=== PATIENT | female | born 1955 | race Caucasian/White ===

== ENCOUNTER 2017-07-26 21:09 | Inpatient (IN) | payer OTHER ==
[~2017-07-26] VITALS: Ht 160 cm; Wt 81.4 kg
[~2017-07-26 21:09] MED LIST: ASPI325T45 PO; CLOP1TAB15 PO; CRS/10 PO; DOCU-94 PO; FERR1TAB13 PO; FOLITAB2 PO; FRS/40 PO; METO25TA3 PO; NVLGI7030 SC; OMEP20TA PO; SEVE800T7 PO; SODI650T8 PO; [UNRECOGNIZED DRUG - CODE]
[2017-07-26 23:22] VITALS: PULSE 98; O2SAT 100
[2017-07-26] MEDS ORDERED: MAGNESIUM HYDROXIDE SUSP 30 ML UDC PO PRN (23:45)
[2017-07-26] MEDS ORDERED: DEXTROSE 50% 50 ML SYR IV PRN (23:45)
[2017-07-26] MEDS ORDERED: GLUCAGON FOR INJ 1 MG VIAL SQ PRN (23:45)
[2017-07-26] MEDS ORDERED: GLUCOSE 10 TABS/TUBE PO PRN (23:45)
[2017-07-26] MEDS ORDERED: GLUCOSE 40% GEL 15 GM TUBE PO PRN (23:45)
[2017-07-26] MEDS ORDERED: NITROGLYCERIN 0.4 MG SL PER TAB CHARGE SL PRN (23:45)
[2017-07-27] VITALS (28 sets, daily range): BP systolic 105–186; BP diastolic 57–86; PULSE 65–98; TEMP 36.4–37.1; O2SAT 93–100; Ht 160 cm; Wt 81.4 kg
--- NOTE | 2017-07-27 00:18 | History and Physical ---
History & Physical Date & Time of Service: Jul 26, 2017 at 23:53 Chief Complaint: Respiratory Distress, Dialysis Patient Primary Care Physician: No Doctor, Assigned History of Present Illness Source: patient The patient is a 62 year old female with a past medical history of ESRD requiring dialysis, CHF, HTN, CAD, DM and COPD that presents as a direct admit from [facility] with worsening shortness of breath since this afternoon. The patient began having worsening shortness of breath that came on suddenly around 2 pm that she noticed when she walked to the bathroom and was significantly short of breath. At that point the patient contacted EMS and was placed on CPAP. At [facility] the patient was started on BIPA with setting of 10/5, 45% FIO2. The patient was treated with 40mg of IV Lasix due to concerns over volume overload in addition to Dextrose due to a BSG in the 60s. Due to the worsening respiratory status of the patient and short term need for dialysis the patient was transferred to [facility]. At this time the patient is resting comfortably in bed and states her shortness of breath has improved with her first dose of IV lasix and BiPAP. She denies any recent fevers, chills, or cough. The patient noted that she had a left sided sharp pain earlier that she though was due to indigestion that has now resolved. The patient was hospitalized 2 weeks ago for acute respiratory failure and subsequently had cardiac arrest (will need to obtain records from [place]). The patient appreciates having baseline orthopnea and PND. She takes her medications as instructed but states she has run out of her Plavix and has not been taking it. Social History Smoking Status: Former Smoker Drug Use: none Marital Status: single Housing status: lives with family Occupational Status: retired Immunizations History of Influenza Vaccine: No History of Tetanus Vaccine?: Yes History of Pneumococcal: Yes History of Hepatitis B Vaccine: Yes Multi-Drug Resistant Organisms History of MDRO: No Allergies Coded Allergies: Atorvastatin (Verified Allergy, Mild, UNKNOWN, 05/29/17) Calcium Channel Blockers (Verified Allergy, Mild, UNKNOWN, 05/29/17) Carbapenems (Verified Allergy, Mild, UNKNOWN, 05/29/17) Cephalosporins (Verified Allergy, Mild, UNKNOWN, 05/29/17) Penicillins (Verified Allergy, Mild, UNKNOWN, 05/29/17) Home Medications Scheduled Aspirin (Aspirin), 325 MG PO DAILY Clopidogrel (Plavix), 75 MG PO DAILY Darbepoetin Basilio-Polysorbate 8 (Aranesp Albumin Free), WK Docusate Sodium (Colace), 1 CAP PO DAILY Ferrous Sulfate (Kp Ferrous Sulfate), 1 TAB PO BID Folic Acid-Vitamin B6-Vitamin (Folic Acid/Vitamin B-6/Vi), PO DAILY Furosemide (Lasix), 40 MG PO BID Insulin Aspart 70/30 (Novolog Mix 70/30), 86 SC HS Insulin Aspart 70/30 (Novolog Mix 70/30), 94 SC QAM Metoprolol Succinate (Toprol Xl), 1 TAB PO DAILY Omeprazole (Omeprazole), 1 TAB PO DAILY Rosuvastatin Calcium (Crestor), 1 TAB PO DAILY Sevelamer Carbonate (Renvela), 1 TAB PO DAILY Sevelamer Carbonate (Renvela), 3 TAB PO TID AC Sodium Bicarbonate (Sodium Bicarbonate), 650 MG PO BID Review of Systems Constitutional: + fatigue, No fever, No chills Respiratory: + shortness of breath, + dyspnea on exertion, No cough, No sputum , No wheezing Cardiovascular: + orthopnea, + PND, + edema, No chest pain Abdomen: No pain, No nausea, No vomiting, No diarrhea, No constipation Genitourinary - Female: No dysuria Physical Exam Vital Signs Date Time Temp Pulse Resp B/P (MAP) Pulse Ox O2 Delivery O2 Flow Rate FiO2 07/26/17 23:22 98 100 General Appearance: no apparent distress, + obese Head: normocephalic, atraumatic Eyes: normal inspection, sclerae normal Neck: supple, trachea midline, + JVD Respiratory/Chest: chest non-tender, + crackles (at the bases bilaterally), + pertinent finding (decreased breath sound) Cardiovascular: regular rate, rhythm, no edema, no gallop, no murmur Abdomen/GI: normal bowel sounds, non tender, soft Extremities/Musculoskelatal: no calf tenderness, + pedal edema, + swelling, + pertinent finding (2+ pitting above the knees bilaterally) Neurologic/Psych: alert, oriented x 3 Impression Assessment and Plan Patient is a 62 year old female with a pmh of ESRD with Dialysis, CHF, DM, HTN, HLD, and CAD that presents with a 1 day history of shortness of breath 1) Acute Hypoxic Respiratory Failure 2/2 CHF and Fluid overload - On arrival was on BiPAP started at [facility] --> Patient was put on 6L of oxygen with O2 sat in the low 90s and tolerating well - Supplemental oxygen with goal of maintaining O2 sats > 90% - Awaiting CXR and CTA reading from [facility] (CDs sent with patient) --> D- Dimer 3.93 but CTA chest negative - Albumin 2.5 - Nephrology Consult --> Most likely will have dialysis tomorrow --> Has fistula in left arm (peritoneal dialysis stopped this last week) - Received Lasix 40mg IV at [facility] (home dose 40mg Lasix PO BID) --> Currently urinating and states she has increase urine output since arriving 2) Hyperkalemia - K+ of 5.4 --> Concern at [facility] due to recent cardiac arrest believed to be secondary to hyperkalemia --> Dextrose given at [facility] - Repeat BMP - Plan for Dialysis tomorrow 3) Hypoglycemia (Diabetes Mellitus) - Current glucose of 76 - Currently holding home Novolog mix - Sliding scale insulin ordered but currently on hold 4) CHF - ECHO from 05/30: * Ejection Fraction = 40-45% * Diastolic dysfunction, Grade III (restrictive pattern), consistent with markedly increased left atrial pressure. - Continuing home Lasix at this time - Monitor improvement after Dialysis tomorrow 5) ESRD - Creatinine significantly elevated (8.1) - Previously on Peritoneal dialysis (currently not functioning) --> Now obtaining dialysis through left AV fistula - Nephrology consulted, appreciate mgmt. Will be dialyzed here - BMP, Phospate, Magnesium ordered 5) CAD - Troponin Negative at [facility] - Continue ASA, Plavix, metoprolol, rosuvastatin 6) Anemia --> Chronic disease - H/H 9.8/32.3 on CBC at [facility] - Baseline Hgb approximately 7 7) DVT Prophylaxis - Heparin 5,000 units q8h 8) Code Status - Full Resuscitation - States that she will be full code until "her daughter decides otherwise" - No power of county attorney or living will at this time - Unable to speak with daughter because number provided by patient was to a disconnected number Resident Physician Supervision Note: I was present with Dr. Sadler during the history and exam. I discussed the case with the resident and agree with the findings and plan as documented in the note. Any exceptions or clarifications are listed here: 62 y/o F Hx systolic CHF, COPD, ESRD, DM - initially presented to [facility] due to respiratory distress. Treated with Lasix for vol overload and transferred for eventual dialysis. She has been on BIPAP since arrival and is comfortable at time of admission. Pt recently transitioned from peritoneal dialysis to hemodialysis. OE AAO x 3 S1,2 R Mild crackle at bases - good air movement and no wheezing NT, ND Min edema P: Pt will be referred to nephrology for dialysis - overload is likely multifactorial due to CHF and ESRD She was treated for minimal hyperK at [facility] as she reports a history of hyperkalemic arrest 2 weeks prior at [place] - her K was only 5.4 however and she received IV Lasix - we will therefore recheck her K The pt is hypoglycemic on arrival so that long-acting Insulin will be held - this may be owing to treatment with Insulin for hyperK Above discussed with pt and resident Documented By: Trey Linares Level of Care Telemetry Advanced Directives Existing Advance Directive: No Existing Living Will: No Existing Power of Document Management Technician: No Existing Health Care Proxy: No Resuscitation Status FULL RESUSCITATION VTE Prophylaxis VTE Risk Assessment Done? Y/N: Yes Risk Level: Moderate Given or contraindicated: Unfractionated heparin SQ, T.E.DKeila Diana, SCD's Resident Tracking Resident Involvement: Resident Care Provided Care Provided: Adult Hospital Medicine
[2017-07-27 01:14] LABS: CALCIUM 9.5 mg/dl (8.5-10.1); CREATININE 8.35 mg/dl (0.60-1.20); PHOSPHORUS 7.7 mg/dl (2.5-4.9); POTASSIUM 5.8 mmol/L (3.5-5.1)
[2017-07-27] MEDS: SEVELAMER HYDROCH 800 MG TAB PO SCH ×4 (05:50→20:41)
[2017-07-27] MEDS: HEPARIN SOD 5000 UNIT/0.5 ML CARP SQ SCH ×3 (05:50→20:43)
[2017-07-27 06:23] LABS: HEMOGLOBIN A1C 6.3 % (4.5-5.6)
[2017-07-27 07:25] LABS: BASO % 0.6 %; BASO ABS # 0.06 K/uL (0-0.2); EOS % 2.3 %; EOS ABS # 0.23 K/uL (0-0.5); HEMATOCRIT 31.3 % (37-47); HEMOGLOBIN 9.5 g/dL (12.0-16.0); IG# 0.01 K/uL (0.00-0.02); LYMPH % 16.3 %; LYMPH ABS # 1.64 K/uL (1.2-3.4); MEAN CELL VOLUME 89.9 fL (80-100); MEAN CORPUSCULAR HEMOGLOBIN 27.3 pg (25-34); MEAN PLATELET VOLUME 9.2 fL (7.4-10.4); MONO % 9.4 %; MONO ABS # 0.95 K/uL (0.11-0.59); NEUT % 71.3 %; NEUT ABS # 7.18 K/uL (1.4-6.5); PLATELET COUNT 291 K/uL (130-400); RED CELL DISTRIBUTION WIDTH CV 17.3 % (11.5-14.5); RED CELL DISTRIBUTION WIDTH SD 57.4 fL (36.4-46.3); WHITE BLOOD COUNT 10.07 K/uL (4.8-10.8)
[2017-07-27 07:29] LABS: MEAN CORPUSCULAR HGB CONC 30.4 g/dl (32-36)
[2017-07-27 07:36] LABS: PTT PATIENT 24.5 SECONDS (21.0-31.0)
[2017-07-27] MEDS: CLOPIDOGREL BISULFATE 75 MG TAB PO SCH (07:48)
[2017-07-27] MEDS: METOPROLOL SUCC 25MG EXT REL TAB PO SCH (07:48)
[2017-07-27] MEDS: ROSUVASTATIN CALCIUM 10 MG TAB PO SCH (07:48)
[2017-07-27] MEDS: FERROUS SULFATE 325 MG TAB PO SCH ×2 (07:48→20:40)
[2017-07-27] MEDS: DOCUSATE SODIUM 100 MG CAP PO SCH (07:48)
[2017-07-27] MEDS: PANTOprazole SOD 40 MG TAB PO SCH (07:48)
[2017-07-27] MEDS: ASPIRIN 325 MG ECTAB PO SCH (07:48)
[2017-07-27] MEDS: FUROSEMIDE 40 MG TAB PO SCH ×2 (07:48→20:41)
[2017-07-27] MEDS: INSULIN ASPART 100 UNITS/ML 3 ML PEN SC SCH ×4 (07:51→20:07)
[2017-07-27 07:56] LABS: ALBUMIN 2.3 gm/dl (3.4-5.0); CALCIUM 9.4 mg/dl (8.5-10.1); CREATININE 8.48 mg/dl (0.60-1.20); TOTAL PROTEIN 8.6 gm/dl (6.4-8.2)
[2017-07-27] MEDS ORDERED: HEPARIN SOD (PORCINE) 1000 UNIT/ML 10 ML VIAL IV SCH (09:00)
[2017-07-27] MEDS ORDERED: SODIUM BICARBONATE 650 MG TAB PO SCH (09:00)
--- NOTE | 2017-07-27 09:01 | DIAGNOSTIC IMAGING REPORT ---
CHEST ONE VIEW PORTABLE CLINICAL HISTORY: Shortness of breath. COMPARISON STUDY: Chest CT July 26, 2017. FINDINGS: A calcific density along the superolateral aspect of the right humeral head suggests calcific tendinitis of the right rotator cuff. There is no pneumothorax. Moderate right and small left pleural effusions are noted with interstitial thickening and bilateral opacities. Moderate cardiomegaly is noted. There is no pneumothorax. IMPRESSION: 1. Interstitial thickening and bilateral opacities suggestive of pulmonary edema. 2. Moderate right and small left pleural effusions. 3. Moderate cardiomegaly. Electronically signed by: Edgardo Argueta M.D. 07/27/2017 8:59 AM Dictated Date/Time: 07/27/2017 8:57 AM
--- NOTE | 2017-07-27 09:33 | Family Medicine Progress Note ---
Progress Note Date of Service Jul 27, 2017. Subjective Pt evaluation today including: conversation w/ patient, physical exam, chart review, lab review, review of studies, review of inpatient medication list Pain: denies PO Intake: adequate SOB improved but not resolved. NO Chest pain leg swelling. + productive cough. no fever, chills, abdominal pain diarrhea Constitutional: No fever, No chills, No weakness Respiratory: + cough (productive), + shortness of breath (improved) Cardiovascular: No chest pain, No palpitations Abdomen: No pain, No nausea, No vomiting, No diarrhea Musculoskeletal: No swelling, No calf pain Skin: No rash, No itch Medications Current Inpatient Medications Medications (Trade) Dose Ordered Sig/Kaley Route Start Time Stop Time Status Last Admin Dose Admin Acetaminophen (Tylenol Tab) 650 mg Q4H PRN PO 07/26/17 23:45 08/25/17 23:44 Magnesium Hydroxide (Milk Of Magnesia Susp) 30 ml Q12H PRN PO 07/26/17 23:45 08/25/17 23:44 Ondansetron HCl (Zofran Inj) 4 mg Q6H PRN IV 07/26/17 23:45 08/25/17 23:44 Nitroglycerin (Nitrostat Tab) 0.4 mg UD PRN SL 07/26/17 23:45 08/25/17 23:44 Glucose (Glucose 40% Gel) 15-30 GRAMS 15 GRAMS... UD PRN PO 07/26/17 23:45 08/25/17 23:44 Glucose (Glucose Chew Tab) 4-8 Tablets 4 Tabl... UD PRN PO 07/26/17 23:45 08/25/17 23:44 Dextrose (Dextrose 50% 50ML Syringe) 25-50ML OF 50% DW IV FOR... UD PRN IV 07/26/17 23:45 08/25/17 23:44 Glucagon (Glucagon Inj) 1 mg UD PRN SQ 07/26/17 23:45 08/25/17 23:44 Aspirin (Ecotrin Tab) 325 mg DAILY PO 07/27/17 09:00 08/26/17 08:59 07/27/17 07:48 325 MG Clopidogrel Bisulfate (plAVix TAB) 75 mg DAILY PO 07/27/17 09:00 08/26/17 08:59 07/27/17 07:48 75 MG Docusate Sodium (coLACE CAP) 100 mg DAILY PO 07/27/17 09:00 08/26/17 08:59 Furosemide (Lasix Tab) 40 mg BID PO 07/27/17 09:00 08/26/17 08:59 07/27/17 07:48 40 MG Metoprolol Succinate (Toprol Xl Tab) 25 mg DAILY PO 07/27/17 09:00 08/26/17 08:59 07/27/17 07:48 25 MG Rosuvastatin Calcium (Crestor Tab) 10 mg DAILY PO 07/27/17 09:00 08/26/17 08:59 07/27/17 07:48 10 MG Sodium Bicarbonate (Sodium Bicarbonate Tab) 650 mg BID PO 07/27/17 09:00 08/26/17 08:59 07/27/17 07:48 650 MG Ferrous Sulfate (Feosol Tab) 325 mg BID PO 07/27/17 09:00 08/26/17 08:59 07/27/17 07:48 325 MG Sevelamer HCl (Renagel Tab) 800 mg HS PO 07/27/17 21:00 08/26/17 20:59 Sevelamer HCl (Renagel Tab) 2,400 mg AC PO 07/27/17 07:00 08/26/17 06:59 07/27/17 05:50 2,400 MG Pantoprazole Sodium (Protonix Tab) 40 mg QAM PO 07/27/17 09:00 08/26/17 08:59 07/27/17 07:48 40 MG Insulin Aspart (novoLOG ASPART) SLIDING SCALE G... ACHS SC 07/27/17 07:00 08/26/17 06:59 07/27/17 07:51 2 UNITS Heparin Sodium (Porcine) (Heparin Sq 5000 Unit/0.5ml) 5,000 unit Q8 SQ 07/27/17 06:00 08/26/17 05:59 07/27/17 05:50 5,000 UNIT Heparin Sodium (Porcine) (Heparin Iv Bolus) 2,000 unit 0900 IV 07/27/17 09:00 07/27/17 18:00 Objective Vital Signs Date Time Temp Pulse Resp B/P (MAP) Pulse Ox O2 Delivery O2 Flow Rate FiO2 1/2/18 07:00 36.6 86 20 166/86 (112) 100 Nasal Cannula 4.0 07/27/17 04:02 BiPAP 40 07/27/17 03:49 36.5 90 20 160/82 (108) 100 Nasal Cannula 6.0 07/27/17 01:15 168/80 (109) 07/27/17 00:16 20 93 Nasal Cannula 6.0 07/27/17 00:00 BiPAP 40 07/27/17 00:00 37.1 98 24 186/79 100 BiPAP 40 07/26/17 23:22 98 100 Physical Exam Notes: GENERAL: alert, well appearing, well nourished, no distress, non-toxic EYE EXAM: normal conjunctiva, PERRL and EOM's grossly intact NECK: supple, no nuchal rigidity, no adenopathy, non-tender LUNGS: Bilateral crackles. Normal chest wall mechanics HEART: no murmurs, S1 normal and S2 normal ABDOMEN: abdomen soft, non-tender, normo-active bowel sounds, no masses, no rebound or guarding. LOWER EXTREMITIES: No pitting edema. NEURO EXAM: Normal sensorium, cranial nerves II-XII grossly intact, normal speech Laboratory Results Results Past 24 Hours Test 07/26/17 23:47 07/27/17 00:28 07/27/17 01:16 07/27/17 04:18 Range/Units Bedside Glucose 76 96 78 70-90 mg/dl Sodium Level 136 136-145 mmol/L Potassium Level 5.8 3.5-5.1 mmol/L Chloride Level 103 98-107 mmol/L Carbon Dioxide Level 24 21-32 mmol/L Anion Gap 9.0 3-11 mmol/L Blood Urea Nitrogen 67 7-18 mg/dl Creatinine 8.35 0.60-1.20 mg/dl Est Creatinine Clear Calc Drug Dose 7.4 ml/min Estimated GFR () 5.4 Estimated GFR (Non- 4.6 BUN/Creatinine Ratio 8.0 10-20 Random Glucose 113 70-99 mg/dl Calcium Level 9.5 8.5-10.1 mg/dl Phosphorus Level 7.7 2.5-4.9 mg/dl Magnesium Level 2.7 1.8-2.4 mg/dl Test 07/27/17 05:22 07/27/17 06:58 07/27/17 07:07 Range/Units Estimated Average Glucose 134 mg/dl Hemoglobin A1c 6.3 4.5-5.6 % Bedside Glucose 96 70-90 mg/dl White Blood Count 10.07 4.8-10.8 K/uL Red Blood Count 3.48 4.2-5.4 M/uL Hemoglobin 9.5 12.0-16.0 g/dL Hematocrit 31.3 37-47 % Mean Corpuscular Volume 89.9 80-100 fL Mean Corpuscular Hemoglobin 27.3 25-34 pg Mean Corpuscular Hemoglobin Concent 30.4 32-36 g/dl Platelet Count 291 130-400 K/uL Mean Platelet Volume 9.2 7.4-10.4 fL Neutrophils (%) (Auto) 71.3 % Lymphocytes (%) (Auto) 16.3 % Monocytes (%) (Auto) 9.4 % Eosinophils (%) (Auto) 2.3 % Basophils (%) (Auto) 0.6 % Neutrophils # (Auto) 7.18 1.4-6.5 K/uL Lymphocytes # (Auto) 1.64 1.2-3.4 K/uL Monocytes # (Auto) 0.95 0.11-0.59 K/uL Eosinophils # (Auto) 0.23 0-0.5 K/uL Basophils # (Auto) 0.06 0-0.2 K/uL RDW Standard Deviation 57.4 36.4-46.3 fL RDW Coefficient of Variation 17.3 11.5-14.5 % Immature Granulocyte % (Auto) 0.1 % Immature Granulocyte # (Auto) 0.01 0.00-0.02 K/uL Prothrombin Time 10.3 9.0-12.0 SECONDS Prothromb Time International Ratio 1.0 0.9-1.1 Activated Partial Thromboplast Time 24.5 21.0-31.0 SECONDS Partial Thromboplastin Ratio 0.9 Sodium Level 134 136-145 mmol/L Potassium Level 6.0 3.5-5.1 mmol/L Chloride Level 102 98-107 mmol/L Carbon Dioxide Level 23 21-32 mmol/L Anion Gap 9.0 3-11 mmol/L Blood Urea Nitrogen 66 7-18 mg/dl Creatinine 8.48 0.60-1.20 mg/dl Est Creatinine Clear Calc Drug Dose 7.3 ml/min Estimated GFR () 5.3 Estimated GFR (Non- 4.6 BUN/Creatinine Ratio 7.8 10-20 Random Glucose 84 70-99 mg/dl Calcium Level 9.4 8.5-10.1 mg/dl Total Bilirubin 0.3 0.2-1 mg/dl Aspartate Amino Transf (AST/SGOT) 7 15-37 U/L Alanine Aminotransferase (ALT/SGPT) 15 12-78 U/L Alkaline Phosphatase 62 45-117 U/L Total Protein 8.6 6.4-8.2 gm/dl Albumin 2.3 3.4-5.0 gm/dl Globulin 6.3 2.5-4.0 gm/dl Albumin/Globulin Ratio 0.4 0.9-2 Assessment and Plan 62 yo F with h/o End stage Renal disease on Dialysis, CHF, DM, HTN, HLD, CAD, recent cardiac arrest presenting with with progressive dyspnea.found to have acute Hypoxic respiratory failure 1) Acute Hypoxic Respiratory Failure - 2/2 CHF and Fluid overload - Continue Furosemide 40 mg BID - Nephrology Consulted, dialysis today 2) Hyperkalemia - K 5.8 -> 6 - Plan for dialysis today 3) Hypoglycemia (T2DM) - resolved - Sliding scale insulin 4) CHF - ECHO from 05/30: Ejection Fraction = 40-45% Diastolic dysfunction, Grade III (restrictive pattern), consistent with markedly increased left atrial pressure. - Continue Lasix 5) ESRD - Cr >8 - Plan for Dialysis today via left AV fistula - Nephrology on board 5) CAD - elevated troponin - may be chronic in the setting of ESRD vs. acute ischemia , Continue to monitor trend - Cardiology consulted, Echo ordered - Continue ASA, Plavix, metoprolol, rosuvastatin 6) Anemia - likely secondary to renal insufficiency - H/H 9.5/31.3 - may need erythropoietin - F/u with Nephrology - follow daily CBC 7) DVT Prophylaxis - Heparin 5,000 units q8h 8) Code Status - Full Resuscitation Continued [facility] stay due to: multiple IV medications needed Discharge planning: uncertain Resident Tracking Resident Involvement: Resident Care Provided Care Provided: Adult Hospital Medicine History Resident Physician Supervision Note: I was present with Dr. Izaguirre during the history and exam. I discussed the case with the resident and agree with the findings and plan as documented in the note. Any exceptions or clarifications are listed here. Pt seen and evaluated following dialysis. At present, she reports that she has essentially returned to her baseline at rest. She is feeling significantly less fatigued, short of breath. However, she shares that this was fairly sudden onset and that she has a recent history of cardiac arrest (?) at [place] and was recommended cardiovascular intervention, which she deferred at that time. General Appearance: no apparent distress, obese Cardiovascular: normal peripheral pulses, regular rate, rhythm, no murmur, other (b/l 1+ pitting edema to the knee) Gastrointestinal: normal bowel sounds, non tender, soft, no organomegaly Neurologic/Psychiatric: alert, normal mood/affect, oriented x 3 Skin Characteristics: normal color, warm/dry Assessment/Plan 62 y/o female h/o ESRD on HD, CHF, DMII, HTN, HLD, CAD w/ recent arrest reported p/w acute onset SOB AHRF 2/2 volume overload in the setting of ESRD on HD and CHF/CAD w/ recent arrest - obtain outside records re: arrest and inpt stay. Will likely c/s cardiology following - continue supplemental O2, wean as needed - Nephrology aware, dialysis scheduled (1x completed) - continue lasix Hyperkalemia - trend BMP Hypoglycemia following insulin administration at [facility] for hyperglycemia - monitor FSBS, ISS/glargine when resolved CHF w/ CAD, HLD - grade III diastolic dysfunction (may 2017) - continue lasix, records above, continue metoprolol, ASA, Plavix, Crestor ACD - repeat CBC in AM DVT PPX - heparin FULL CODE
--- NOTE | 2017-07-27 10:12 | Nephrology Consultation ---
Nephrology Consultation Date & Providers Date of Consultation: Jul 27, 2017. Primary Care Provider: No Doctor, Assigned Referring Provider: Reason for Consultation ESRD History of Present Illness Brooke Fitch is a 62-year-old female with ESRD attributed to diabetic nephropathy. She has been on dialysis for ~2 years. Brooke is maintained on hemodialysis dialysis. She switched to in-center HD from PD approximately 1 week ago. Brooke's primary patient advocate is Dr. Coto in [place] at [facility]. She was on PD for approximately 2 years. PD complicated by difficulty with UF. She was admitted to [facility] in February with CHF. She was admitted to [facility] in May with volume overload. Volume status improved with HD. She has a LUE AVF. She presented to the ED at [facility] yesterday with shortness of breath and was transferred to [facility] for inpatient need for dialysis. Symptoms improved with IV loop diuretics and BIPAP. Brooke has chronic persistent anemia. She is on Aranesp. She denies any melena or hematochezia. She notes that she received blood transfusion support in January. TTE was completed in May noting LVEF of 40-45%. LA was severely dilated. There wass notable mitral calcification with mild MR/MS. CXR documenting pulmonary edema as well as vascular congestion, chronic changes , R>L pleural effusions and cardiomegaly. I spoke with nursing staff at [facility] this morning. Records from her dialysis unit were reviewed. Past Medical/Surgical History Medical: ESRD on HD Anemia Coronary artery disease with history of MO and PCI COPD Diabetes mellitus Hypertension Surgical: AVF, PD catheter placement Allergies Coded Allergies: Atorvastatin (Verified Allergy, Mild, UNKNOWN, 05/29/17) Calcium Channel Blockers (Verified Allergy, Mild, UNKNOWN, 05/29/17) Carbapenems (Verified Allergy, Mild, UNKNOWN, 05/29/17) Cephalosporins (Verified Allergy, Mild, UNKNOWN, 05/29/17) Penicillins (Verified Allergy, Mild, UNKNOWN, 05/29/17) Inpatient Medications Current Inpatient Medications Medications (Trade) Dose Ordered Sig/Kaley Route Start Time Stop Time Status Last Admin Dose Admin Acetaminophen (Tylenol Tab) 650 mg Q4H PRN PO 07/26/17 23:45 08/25/17 23:44 Magnesium Hydroxide (Milk Of Magnesia Susp) 30 ml Q12H PRN PO 07/26/17 23:45 08/25/17 23:44 Ondansetron HCl (Zofran Inj) 4 mg Q6H PRN IV 07/26/17 23:45 08/25/17 23:44 Nitroglycerin (Nitrostat Tab) 0.4 mg UD PRN SL 07/26/17 23:45 08/25/17 23:44 Glucose (Glucose 40% Gel) 15-30 GRAMS 15 GRAMS... UD PRN PO 07/26/17 23:45 08/25/17 23:44 Glucose (Glucose Chew Tab) 4-8 Tablets 4 Tabl... UD PRN PO 07/26/17 23:45 08/25/17 23:44 Dextrose (Dextrose 50% 50ML Syringe) 25-50ML OF 50% DW IV FOR... UD PRN IV 07/26/17 23:45 08/25/17 23:44 Glucagon (Glucagon Inj) 1 mg UD PRN SQ 07/26/17 23:45 08/25/17 23:44 Aspirin (Ecotrin Tab) 325 mg DAILY PO 07/27/17 09:00 08/26/17 08:59 07/27/17 07:48 325 MG Clopidogrel Bisulfate (plAVix TAB) 75 mg DAILY PO 07/27/17 09:00 08/26/17 08:59 07/27/17 07:48 75 MG Docusate Sodium (coLACE CAP) 100 mg DAILY PO 07/27/17 09:00 08/26/17 08:59 Furosemide (Lasix Tab) 40 mg BID PO 07/27/17 09:00 08/26/17 08:59 07/27/17 07:48 40 MG Metoprolol Succinate (Toprol Xl Tab) 25 mg DAILY PO 07/27/17 09:00 08/26/17 08:59 07/27/17 07:48 25 MG Rosuvastatin Calcium (Crestor Tab) 10 mg DAILY PO 07/27/17 09:00 08/26/17 08:59 07/27/17 07:48 10 MG Sodium Bicarbonate (Sodium Bicarbonate Tab) 650 mg BID PO 07/27/17 09:00 08/26/17 08:59 07/27/17 07:48 650 MG Ferrous Sulfate (Feosol Tab) 325 mg BID PO 07/27/17 09:00 08/26/17 08:59 07/27/17 07:48 325 MG Sevelamer HCl (Renagel Tab) 800 mg HS PO 07/27/17 21:00 08/26/17 20:59 Sevelamer HCl (Renagel Tab) 2,400 mg AC PO 07/27/17 07:00 08/26/17 06:59 07/27/17 05:50 2,400 MG Pantoprazole Sodium (Protonix Tab) 40 mg QAM PO 07/27/17 09:00 08/26/17 08:59 07/27/17 07:48 40 MG Insulin Aspart (novoLOG ASPART) SLIDING SCALE G... ACHS SC 07/27/17 07:00 08/26/17 06:59 07/27/17 07:51 2 UNITS Heparin Sodium (Porcine) (Heparin Sq 5000 Unit/0.5ml) 5,000 unit Q8 SQ 07/27/17 06:00 08/26/17 05:59 07/27/17 05:50 5,000 UNIT Heparin Sodium (Porcine) (Heparin Iv Bolus) 2,000 unit 0900 IV 07/27/17 09:00 07/27/17 18:00 Social History Smoking Status: Former Smoker Drug Use: none Marital Status: single Housing Status: lives with family Occupation: retired Review of Systems A complete review of systems was performed. Pertinent positives are noted above. All other systems are negative. Physical Exam Date Time Temp Pulse Resp B/P (MAP) Pulse Ox O2 Delivery O2 Flow Rate FiO2 07/27/17 07:00 36.6 86 20 166/86 (112) 100 Nasal Cannula 4.0 07/27/17 04:02 BiPAP 40 07/27/17 03:49 36.5 90 20 160/82 (108) 100 Nasal Cannula 6.0 07/27/17 01:15 168/80 (109) 07/27/17 00:16 20 93 Nasal Cannula 6.0 07/27/17 00:00 BiPAP 40 07/27/17 00:00 37.1 98 24 186/79 100 BiPAP 40 07/26/17 23:22 98 100 General Appearance: WD/WN, no apparent distress Head: normocephalic, atraumatic Eyes: normal inspection, sclerae normal ENT: normal ENT inspection, pharynx normal Neck: supple, + JVD Respiratory/Chest: no respiratory distress, no accessory muscle use, + decreased breath sounds, + rales Cardiovascular: regular rate, rhythm, no gallop Abdomen/GI: non tender, soft Back: no CVA tenderness Extremities/Musculoskelatal: normal inspection, + pedal edema, + pertinent finding (AVF with thrill and bruit) Neurologic/Psych: alert, oriented x 3 Laboratory Results Last 24 Hours Test 07/26/17 23:47 07/27/17 00:28 07/27/17 01:16 07/27/17 04:18 Bedside Glucose 76 mg/dl 96 mg/dl 78 mg/dl Sodium Level 136 mmol/L Potassium Level 5.8 mmol/L Chloride Level 103 mmol/L Carbon Dioxide Level 24 mmol/L Anion Gap 9.0 mmol/L Blood Urea Nitrogen 67 mg/dl Creatinine 8.35 mg/dl Est Creatinine Clear Calc Drug Dose 7.4 ml/min Estimated GFR () 5.4 Estimated GFR (Non- 4.6 BUN/Creatinine Ratio 8.0 Random Glucose 113 mg/dl Calcium Level 9.5 mg/dl Phosphorus Level 7.7 mg/dl Magnesium Level 2.7 mg/dl Test 07/27/17 05:22 07/27/17 06:58 07/27/17 07:07 07/27/17 09:38 Estimated Average Glucose 134 mg/dl Hemoglobin A1c 6.3 % Bedside Glucose 96 mg/dl White Blood Count 10.07 K/uL Red Blood Count 3.48 M/uL Hemoglobin 9.5 g/dL Hematocrit 31.3 % Mean Corpuscular Volume 89.9 fL Mean Corpuscular Hemoglobin 27.3 pg Mean Corpuscular Hemoglobin Concent 30.4 g/dl Platelet Count 291 K/uL Mean Platelet Volume 9.2 fL Neutrophils (%) (Auto) 71.3 % Lymphocytes (%) (Auto) 16.3 % Monocytes (%) (Auto) 9.4 % Eosinophils (%) (Auto) 2.3 % Basophils (%) (Auto) 0.6 % Neutrophils # (Auto) 7.18 K/uL Lymphocytes # (Auto) 1.64 K/uL Monocytes # (Auto) 0.95 K/uL Eosinophils # (Auto) 0.23 K/uL Basophils # (Auto) 0.06 K/uL RDW Standard Deviation 57.4 fL RDW Coefficient of Variation 17.3 % Immature Granulocyte % (Auto) 0.1 % Immature Granulocyte # (Auto) 0.01 K/uL Prothrombin Time 10.3 SECONDS Prothromb Time International Ratio 1.0 Activated Partial Thromboplast Time 24.5 SECONDS Partial Thromboplastin Ratio 0.9 Sodium Level 134 mmol/L Potassium Level 6.0 mmol/L Chloride Level 102 mmol/L Carbon Dioxide Level 23 mmol/L Anion Gap 9.0 mmol/L Blood Urea Nitrogen 66 mg/dl Creatinine 8.48 mg/dl Est Creatinine Clear Calc Drug Dose 7.3 ml/min Estimated GFR () 5.3 Estimated GFR (Non- 4.6 BUN/Creatinine Ratio 7.8 Random Glucose 84 mg/dl Calcium Level 9.4 mg/dl Total Bilirubin 0.3 mg/dl Aspartate Amino Transf (AST/SGOT) 7 U/L Alanine Aminotransferase (ALT/SGPT) 15 U/L Alkaline Phosphatase 62 U/L Total Protein 8.6 gm/dl Albumin 2.3 gm/dl Globulin 6.3 gm/dl Albumin/Globulin Ratio 0.4 Impression (1) ESRD on dialysis (2) Acute respiratory failure with hypoxia (3) CHF (congestive heart failure) (4) Anemia (5) COPD (chronic obstructive pulmonary disease) (6) SOB (shortness of breath) Brooke Fitch is a 62-year-old female with ESRD on HD. She was admitted with shortness of breath. Evaluation notable for acute on chronic systolic CHF. 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 I spoke with [facility] staff at [facility] HD orders were placed and plan of care discussed with the inpatient HD nurse. Recommendations -- Plan HD today for UF/clearance - orders entered and plan discussed with HD nurse -- Low K bath -- Epogen with HD -- Monitor metabolic profile and CBC daily -- Sevelamer QAC, check PO4 with AM labs -- Renal diet with sodium and potassium restriction -- Records from renal care reviewed
--- NOTE | 2017-07-27 10:21 | Dialysis Progress Note ---
Hemodialysis Note Date of Service Jul 27, 2017. Chief Complaint ESRD Subjective Brooke was seen and evaluated during hemodialysis. She was tolerating the treatment well. Qb and BP appropriate. Review of Systems A complete review of systems was performed. Pertinent positives are noted above. All other systems are negative. Vital Signs Last 8 Hrs Date Time Temp Pulse Resp B/P (MAP) Pulse Ox O2 Delivery O2 Flow Rate FiO2 07/27/17 08:00 Nasal Cannula 2.0 07/27/17 07:00 36.6 86 20 166/86 (112) 100 Nasal Cannula 4.0 07/27/17 04:02 BiPAP 40 07/27/17 03:49 36.5 90 20 160/82 (108) 100 Nasal Cannula 6.0 Last Recorded Weight Weight (Kilograms): 88.400 Physical Exam General Appearance: WD/WN, no apparent distress Head: normocephalic, atraumatic Eyes: normal inspection, sclerae normal ENT: normal ENT inspection, pharynx normal Neck: supple, no JVD Respiratory/Chest: lungs clear, + rales Neurologic/Psych: alert, normal mood/affect Social History Drug Use: none Marital Status: single Housing Status: lives with family Occupation: retired Laboratory Results Past 24 Hours 07/27/17 07:07 Red Blood Count 3.48, Mean Corpuscular Volume 89.9, Mean Corpuscular Hemoglobin 27.3, Mean Corpuscular Hemoglobin Concent 30.4, Mean Platelet Volume 9.2, Neutrophils (%) (Auto) 71.3, Lymphocytes (%) (Auto) 16.3, Monocytes (%) (Auto) 9.4, Eosinophils (%) (Auto) 2.3, Basophils (%) (Auto) 0.6, Neutrophils # (Auto) 7.18, Lymphocytes # (Auto) 1.64, Monocytes # (Auto) 0.95, Eosinophils # (Auto) 0.23, Basophils # (Auto) 0.06 07/27/17 00:28 07/27/17 07:07 Test 07/26/17 23:47 07/27/17 00:28 07/27/17 01:16 07/27/17 04:18 Bedside Glucose 76 mg/dl (70-90) 96 mg/dl (70-90) 78 mg/dl (70-90) Anion Gap 9.0 mmol/L (3-11) Est Creatinine Clear Calc Drug Dose 7.4 ml/min Estimated GFR () 5.4 Estimated GFR (Non- 4.6 BUN/Creatinine Ratio 8.0 (10-20) Calcium Level 9.5 mg/dl (8.5-10.1) Phosphorus Level 7.7 mg/dl (2.5-4.9) Magnesium Level 2.7 mg/dl (1.8-2.4) Test 07/27/17 05:22 07/27/17 06:58 07/27/17 07:07 07/27/17 09:38 Estimated Average Glucose 134 mg/dl Hemoglobin A1c 6.3 % (4.5-5.6) Bedside Glucose 96 mg/dl (70-90) White Blood Count 10.07 K/uL (4.8-10.8) Red Blood Count 3.48 M/uL (4.2-5.4) Hemoglobin 9.5 g/dL (12.0-16.0) Hematocrit 31.3 % (37-47) Mean Corpuscular Volume 89.9 fL (80-100) Mean Corpuscular Hemoglobin 27.3 pg (25-34) Mean Corpuscular Hemoglobin Concent 30.4 g/dl (32-36) Platelet Count 291 K/uL (130-400) Mean Platelet Volume 9.2 fL (7.4-10.4) Neutrophils (%) (Auto) 71.3 % Lymphocytes (%) (Auto) 16.3 % Monocytes (%) (Auto) 9.4 % Eosinophils (%) (Auto) 2.3 % Basophils (%) (Auto) 0.6 % Neutrophils # (Auto) 7.18 K/uL (1.4-6.5) Lymphocytes # (Auto) 1.64 K/uL (1.2-3.4) Monocytes # (Auto) 0.95 K/uL (0.11-0.59) Eosinophils # (Auto) 0.23 K/uL (0-0.5) Basophils # (Auto) 0.06 K/uL (0-0.2) RDW Standard Deviation 57.4 fL (36.4-46.3) RDW Coefficient of Variation 17.3 % (11.5-14.5) Immature Granulocyte % (Auto) 0.1 % Immature Granulocyte # (Auto) 0.01 K/uL (0.00-0.02) Prothrombin Time 10.3 SECONDS (9.0-12.0) Prothromb Time International Ratio 1.0 (0.9-1.1) Activated Partial Thromboplast Time 24.5 SECONDS (21.0-31.0) Partial Thromboplastin Ratio 0.9 Anion Gap 9.0 mmol/L (3-11) Est Creatinine Clear Calc Drug Dose 7.3 ml/min Estimated GFR () 5.3 Estimated GFR (Non- 4.6 BUN/Creatinine Ratio 7.8 (10-20) Calcium Level 9.4 mg/dl (8.5-10.1) Total Bilirubin 0.3 mg/dl (0.2-1) Aspartate Amino Transf (AST/SGOT) 7 U/L (15-37) Alanine Aminotransferase (ALT/SGPT) 15 U/L (12-78) Alkaline Phosphatase 62 U/L (45-117) Total Protein 8.6 gm/dl (6.4-8.2) Albumin 2.3 gm/dl (3.4-5.0) Globulin 6.3 gm/dl (2.5-4.0) Albumin/Globulin Ratio 0.4 (0.9-2) Allergies Coded Allergies: Atorvastatin (Verified Allergy, Mild, UNKNOWN, 05/29/17) Calcium Channel Blockers (Verified Allergy, Mild, UNKNOWN, 05/29/17) Carbapenems (Verified Allergy, Mild, UNKNOWN, 05/29/17) Cephalosporins (Verified Allergy, Mild, UNKNOWN, 05/29/17) Penicillins (Verified Allergy, Mild, UNKNOWN, 05/29/17) Medications Current Inpatient Medications Medications (Trade) Dose Ordered Sig/Kaley Route Start Time Stop Time Status Last Admin Dose Admin Acetaminophen (Tylenol Tab) 650 mg Q4H PRN PO 07/26/17 23:45 08/25/17 23:44 Magnesium Hydroxide (Milk Of Magnesia Susp) 30 ml Q12H PRN PO 07/26/17 23:45 08/25/17 23:44 Ondansetron HCl (Zofran Inj) 4 mg Q6H PRN IV 07/26/17 23:45 08/25/17 23:44 Nitroglycerin (Nitrostat Tab) 0.4 mg UD PRN SL 07/26/17 23:45 08/25/17 23:44 Glucose (Glucose 40% Gel) 15-30 GRAMS 15 GRAMS... UD PRN PO 07/26/17 23:45 08/25/17 23:44 Glucose (Glucose Chew Tab) 4-8 Tablets 4 Tabl... UD PRN PO 07/26/17 23:45 08/25/17 23:44 Dextrose (Dextrose 50% 50ML Syringe) 25-50ML OF 50% DW IV FOR... UD PRN IV 07/26/17 23:45 08/25/17 23:44 Glucagon (Glucagon Inj) 1 mg UD PRN SQ 07/26/17 23:45 08/25/17 23:44 Aspirin (Ecotrin Tab) 325 mg DAILY PO 07/27/17 09:00 08/26/17 08:59 07/27/17 07:48 325 MG Clopidogrel Bisulfate (plAVix TAB) 75 mg DAILY PO 07/27/17 09:00 08/26/17 08:59 07/27/17 07:48 75 MG Docusate Sodium (coLACE CAP) 100 mg DAILY PO 07/27/17 09:00 08/26/17 08:59 Furosemide (Lasix Tab) 40 mg BID PO 07/27/17 09:00 08/26/17 08:59 07/27/17 07:48 40 MG Metoprolol Succinate (Toprol Xl Tab) 25 mg DAILY PO 07/27/17 09:00 08/26/17 08:59 07/27/17 07:48 25 MG Rosuvastatin Calcium (Crestor Tab) 10 mg DAILY PO 07/27/17 09:00 08/26/17 08:59 07/27/17 07:48 10 MG Sodium Bicarbonate (Sodium Bicarbonate Tab) 650 mg BID PO 07/27/17 09:00 08/26/17 08:59 07/27/17 07:48 650 MG Ferrous Sulfate (Feosol Tab) 325 mg BID PO 07/27/17 09:00 08/26/17 08:59 07/27/17 07:48 325 MG Sevelamer HCl (Renagel Tab) 800 mg HS PO 07/27/17 21:00 08/26/17 20:59 Sevelamer HCl (Renagel Tab) 2,400 mg AC PO 07/27/17 07:00 08/26/17 06:59 07/27/17 05:50 2,400 MG Pantoprazole Sodium (Protonix Tab) 40 mg QAM PO 07/27/17 09:00 08/26/17 08:59 07/27/17 07:48 40 MG Insulin Aspart (novoLOG ASPART) SLIDING SCALE G... ACHS SC 07/27/17 07:00 08/26/17 06:59 07/27/17 07:51 2 UNITS Heparin Sodium (Porcine) (Heparin Sq 5000 Unit/0.5ml) 5,000 unit Q8 SQ 07/27/17 06:00 08/26/17 05:59 07/27/17 05:50 5,000 UNIT Heparin Sodium (Porcine) (Heparin Iv Bolus) 2,000 unit 0900 IV 07/27/17 09:00 07/27/17 18:00 Epoetin Basilio (Procrit Inj) 10,000 units NOW IV 07/27/17 10:15 08/26/17 10:14 UNV Impression (1) ESRD on dialysis (2) Acute respiratory failure with hypoxia (3) CHF (congestive heart failure) (4) Anemia (5) COPD (chronic obstructive pulmonary disease) (6) SOB (shortness of breath) Brooke Fitch is a 62-year-old female with ESRD on HD. She was admitted with shortness of breath. Evaluation notable for acute on chronic systolic CHF. She has hyperkalemia requiring urgent COMPOSITION INSTRUCTOR. Qb and BP are appropriate. UF started at 4 L+ as tolerated.
[2017-07-27] MEDS ORDERED: EPOETIN ALFA 10,000 UNITS/ML VIAL IV SCH (10:30)
[2017-07-28] VITALS (9 sets, daily range): BP systolic 117–152; BP diastolic 65–82; PULSE 76–87; TEMP 36.5–37; O2SAT 92–100
[2017-07-28] MEDS: ACETAMINOPHEN 325 MG TAB PO PRN (02:00)
[2017-07-28] MEDS: SEVELAMER HYDROCH 800 MG TAB PO SCH ×4 (05:59→21:41)
[2017-07-28] MEDS: HEPARIN SOD 5000 UNIT/0.5 ML CARP SQ SCH ×3 (06:00→21:43)
[2017-07-28] MEDS: PANTOprazole SOD 40 MG TAB PO SCH (07:32)
[2017-07-28] MEDS: METOPROLOL SUCC 25MG EXT REL TAB PO SCH (07:33)
[2017-07-28] MEDS: CLOPIDOGREL BISULFATE 75 MG TAB PO SCH (07:34)
[2017-07-28] MEDS: FERROUS SULFATE 325 MG TAB PO SCH ×2 (07:34→21:41)
[2017-07-28] MEDS: ASPIRIN 325 MG ECTAB PO SCH (07:34)
[2017-07-28] MEDS: FUROSEMIDE 40 MG TAB PO SCH ×2 (07:35→21:41)
[2017-07-28] MEDS: DOCUSATE SODIUM 100 MG CAP PO SCH (07:35)
[2017-07-28] MEDS: ROSUVASTATIN CALCIUM 10 MG TAB PO SCH (07:35)
[2017-07-28 07:37] LABS: ALBUMIN 2.3 gm/dl (3.4-5.0); CALCIUM 8.2 mg/dl (8.5-10.1); CREATININE 7.76 mg/dl (0.60-1.20); PHOSPHORUS 6.4 mg/dl (2.5-4.9); POTASSIUM 5.7 mmol/L (3.5-5.1)
[2017-07-28] MEDS: INSULIN ASPART 100 UNITS/ML 3 ML PEN SC SCH ×4 (08:27→20:57)
--- NOTE | 2017-07-28 10:13 | Family Medicine Progress Note ---
Progress Note Date of Service Jul 28, 2017. Subjective Pt evaluation today including: conversation w/ patient, conversation w/ family , physical exam, chart review, lab review, review of studies, review of inpatient medication list Patient had no complaints. She denied Chest pain, SOB, worsening edema, cough Constitutional: No fever, No chills Respiratory: No cough, No shortness of breath Cardiovascular: No chest pain, No palpitations Abdomen: No pain, No nausea, No vomiting Female : No dysuria, No urinary frequency Skin: No rash, No itch Medications Current Inpatient Medications Medications (Trade) Dose Ordered Sig/Kaley Route Start Time Stop Time Status Last Admin Dose Admin Acetaminophen (Tylenol Tab) 650 mg Q4H PRN PO 07/26/17 23:45 08/25/17 23:44 07/28/17 02:00 650 MG Magnesium Hydroxide (Milk Of Magnesia Susp) 30 ml Q12H PRN PO 07/26/17 23:45 08/25/17 23:44 Ondansetron HCl (Zofran Inj) 4 mg Q6H PRN IV 07/26/17 23:45 08/25/17 23:44 Nitroglycerin (Nitrostat Tab) 0.4 mg UD PRN SL 07/26/17 23:45 08/25/17 23:44 Glucose (Glucose 40% Gel) 15-30 GRAMS 15 GRAMS... UD PRN PO 07/26/17 23:45 08/25/17 23:44 Glucose (Glucose Chew Tab) 4-8 Tablets 4 Tabl... UD PRN PO 07/26/17 23:45 08/25/17 23:44 Dextrose (Dextrose 50% 50ML Syringe) 25-50ML OF 50% DW IV FOR... UD PRN IV 07/26/17 23:45 08/25/17 23:44 Glucagon (Glucagon Inj) 1 mg UD PRN SQ 07/26/17 23:45 08/25/17 23:44 Aspirin (Ecotrin Tab) 325 mg DAILY PO 07/27/17 09:00 08/26/17 08:59 07/28/17 07:34 325 MG Clopidogrel Bisulfate (plAVix TAB) 75 mg DAILY PO 07/27/17 09:00 08/26/17 08:59 07/28/17 07:34 75 MG Docusate Sodium (coLACE CAP) 100 mg DAILY PO 07/27/17 09:00 08/26/17 08:59 07/28/17 07:35 100 MG Furosemide (Lasix Tab) 40 mg BID PO 07/27/17 09:00 08/26/17 08:59 07/28/17 07:35 40 MG Metoprolol Succinate (Toprol Xl Tab) 25 mg DAILY PO 07/27/17 09:00 08/26/17 08:59 07/28/17 07:33 25 MG Rosuvastatin Calcium (Crestor Tab) 10 mg DAILY PO 07/27/17 09:00 08/26/17 08:59 07/28/17 07:35 10 MG Sodium Bicarbonate (Sodium Bicarbonate Tab) 650 mg BID PO 07/27/17 09:00 08/26/17 08:59 Future Hold 07/27/17 07:48 650 MG Ferrous Sulfate (Feosol Tab) 325 mg BID PO 07/27/17 09:00 08/26/17 08:59 07/28/17 07:34 325 MG Sevelamer HCl (Renagel Tab) 800 mg HS PO 07/27/17 21:00 08/26/17 20:59 07/27/17 20:41 800 MG Sevelamer HCl (Renagel Tab) 2,400 mg AC PO 07/27/17 07:00 08/26/17 06:59 07/28/17 05:59 2,400 MG Pantoprazole Sodium (Protonix Tab) 40 mg QAM PO 07/27/17 09:00 08/26/17 08:59 07/28/17 07:32 40 MG Insulin Aspart (novoLOG ASPART) SLIDING SCALE G... ACHS SC 07/27/17 07:00 08/26/17 06:59 07/28/17 08:27 1 UNITS Heparin Sodium (Porcine) (Heparin Sq 5000 Unit/0.5ml) 5,000 unit Q8 SQ 07/27/17 06:00 08/26/17 05:59 07/28/17 06:00 5,000 UNIT Objective Vital Signs Date Time Temp Pulse Resp B/P (MAP) Pulse Ox O2 Delivery O2 Flow Rate FiO2 07/28/17 08:00 98 Nasal Cannula 2.0 07/28/17 07:42 36.6 76 22 119/65 (83) 98 Nasal Cannula 2.0 07/28/17 04:02 Nasal Cannula 2.0 07/28/17 03:29 36.9 79 18 117/73 (88) 92 Nasal Cannula 2.0 07/28/17 00:05 Nasal Cannula 2.0 07/27/17 23:24 36.4 70 18 105/67 (80) 100 Nasal Cannula 2.0 07/27/17 20:00 94 Nasal Cannula 2.0 07/27/17 19:49 36.7 74 18 130/73 (92) 96 07/27/17 16:00 95 Nasal Cannula 2.0 07/27/17 15:23 36.9 88 18 156/69 (98) 95 07/27/17 15:16 36.4 83 171/65 (100) 07/27/17 14:00 72 151/74 07/27/17 13:45 71 147/66 07/27/17 13:30 70 142/61 07/27/17 13:15 71 138/66 07/27/17 13:00 76 149/67 07/27/17 12:45 71 152/71 07/27/17 12:30 65 164/65 07/27/17 12:15 75 157/64 07/27/17 12:00 76 134/71 07/27/17 11:45 75 142/60 07/27/17 11:30 71 137/64 07/27/17 11:15 69 149/71 07/27/17 11:00 77 152/68 07/27/17 10:45 76 148/57 07/27/17 10:30 81 148/61 07/27/17 10:15 78 157/65 Physical Exam General Appearance: WD/WN, no apparent distress Eyes: PERRL, EOMI Neck: supple, no adenopathy, trachea midline Respiratory/Chest: lungs clear, normal breath sounds, no respiratory distress Cardiovascular: regular rate, rhythm, no edema, no murmur Abdomen: normal bowel sounds, non tender, soft Neurologic/Psychiatric: alert, normal mood/affect Skin: normal color, warm/dry Laboratory Results Results Past 24 Hours Test 07/27/17 12:10 07/27/17 15:06 07/27/17 16:15 07/27/17 17:03 Range/Units Bedside Glucose 105 177 70-90 mg/dl Hepatitis B Surface Antigen NEG NEG Hepatitis B Surface Antibody NEG Troponin I 0.119 0-0.045 ng/ml Test 07/27/17 20:04 07/28/17 05:43 07/28/17 06:51 Range/Units Bedside Glucose 120 136 70-90 mg/dl Sodium Level 134 136-145 mmol/L Potassium Level 5.7 3.5-5.1 mmol/L Chloride Level 102 98-107 mmol/L Carbon Dioxide Level 24 21-32 mmol/L Anion Gap 8.0 3-11 mmol/L Blood Urea Nitrogen 58 7-18 mg/dl Creatinine 7.76 0.60-1.20 mg/dl Est Creatinine Clear Calc Drug Dose 7.8 ml/min Estimated GFR () 5.9 Estimated GFR (Non- 5.1 BUN/Creatinine Ratio 7.3 10-20 Random Glucose 114 70-99 mg/dl Calcium Level 8.2 8.5-10.1 mg/dl Phosphorus Level 6.4 2.5-4.9 mg/dl Albumin 2.3 3.4-5.0 gm/dl Assessment and Plan 62 yo F with h/o End stage Renal disease on Dialysis, CHF, DM, HTN, HLD, CAD, recent cardiac arrest presenting with with progressive dyspnea.found to have acute Hypoxic respiratory failure 1) Acute Hypoxic Respiratory Failure - 2/2 CHF and Fluid overload - Continue Furosemide 40 mg BID - Nephrology Consulted, successfully dialyzed yesterday 2) Hyperkalemia - K 6-->5.7 - Plan for dialysis today 3) Hypoglycemia (T2DM) - resolved - Sliding scale insulin 4) CHF - ECHO from 05/30: Ejection Fraction = 40-45% Diastolic dysfunction, Grade III (restrictive pattern), consistent with markedly increased left atrial pressure. - Continue Lasix 5) ESRD - Cr 8.48-->7.76 - Nephrology on board 5) CAD - elevated troponin - may be chronic in the setting of ESRD vs. acute ischemia , Continue to monitor trend - Cardiology consulted, Echo ordered - Continue ASA, Plavix, metoprolol, rosuvastatin 6) Anemia - likely secondary to renal insufficiency - H/H 9.5/31.3 - erythropoietin per Nephrolgoy - F/u with Nephrology - follow daily CBC 7) DVT Prophylaxis - Heparin 5,000 units q8h 8) Code Status - Full Resuscitation Continued [facility] stay due to: multiple IV medications needed Discharge planning: uncertain Resident Tracking Resident Involvement: Resident Care Provided Care Provided: Adult Hospital Medicine History Resident Physician Supervision Note: I was present with Dr. Izaguirre during the history and exam. I discussed the case with the resident and agree with the findings and plan as documented in the note. Any exceptions or clarifications are listed here. Pt reports returning to baseline at rest, while still having uncertainty regarding tolerance for activity 2/2 shortness of breath. Reports no chest pain , lightheadedness, n/v, leg swelling. General Appearance: no apparent distress, obese Respiratory: chest non-tender, lungs clear, normal breath sounds, no respiratory distress Cardiovascular: normal peripheral pulses, regular rate, rhythm, no murmur, other (1+ pitting b/l LE) Gastrointestinal: normal bowel sounds, non tender, soft, no organomegaly Assessment/Plan 62 y/o female h/o ESRD on HD, CHF, DMII, HTN, HLD, CAD w/ recent arrest reported p/w acute onset SOB AHRF 2/2 volume overload in the setting of ESRD on HD and CHF/CAD w/ recent arrest - obtain outside records re: arrest and inpt stay - nephrology consulted, recommendations appreciated, dialysis tomorrow - continue supplemental O2, wean as needed - continue lasix and monitor I/Os CHF w/ CAD, HLD - grade III diastolic dysfunction (may 2017) - cardiology consulted, recommendations appreciated. continue lasix, records above, continue metoprolol, ASA, Plavix, Crestor Hyperkalemia - trend BMP DMII w/ hypoglycemia following insulin administration at [facility] - monitor FSBS , ISS ACD - monitor CBC DVT PPX - heparin FULL CODE
--- NOTE | 2017-07-28 11:00 | Nephrology Progress Note ---
Nephrology Progress Note Date of Service Jul 28, 2017. Chief Complaint ESRD Subjective No acute events overnight. No complaints this morning. Brooke feels well this morning. She denies shortness of breath. She tolerated HD well yesterday. Net UF 2 L. BP acceptable. Review of Systems A complete review of systems was performed. Pertinent positives are noted above. All other systems are negative. Vital Signs Last 8 Hrs Date Time Temp Pulse Resp B/P (MAP) Pulse Ox O2 Delivery O2 Flow Rate FiO2 07/28/17 08:00 98 Nasal Cannula 2.0 07/28/17 07:42 36.6 76 22 119/65 (83) 98 Nasal Cannula 2.0 07/28/17 04:02 Nasal Cannula 2.0 07/28/17 03:29 36.9 79 18 117/73 (88) 92 Nasal Cannula 2.0 Last Recorded Weight Weight (Kilograms): 85.200 Physical Exam General Appearance: WD/WN, no apparent distress Head: normocephalic, atraumatic Eyes: normal inspection, sclerae normal ENT: normal ENT inspection, pharynx normal Neck: supple, no JVD Respiratory/Chest: lungs clear, no respiratory distress, no accessory muscle use Cardiovascular: regular rate, rhythm, no gallop Abdomen/GI: non tender, soft Extremities/Musculoskelatal: normal inspection, no pedal edema, + pertinent finding (AVF with thrill and bruit) Neurologic/Psych: alert, normal mood/affect Social History Drug Use: none Marital Status: single Housing Status: lives with family Occupation: retired Laboratory Results Past 24 Hours 07/28/17 05:43 Test 07/27/17 12:10 07/27/17 15:06 07/27/17 16:15 07/27/17 17:03 Bedside Glucose 105 mg/dl (70-90) 177 mg/dl (70-90) Hepatitis B Surface Antigen NEG (NEG) Hepatitis B Surface Antibody NEG Troponin I 0.119 ng/ml (0-0.045) Test 07/27/17 20:04 07/28/17 05:43 07/28/17 06:51 Bedside Glucose 120 mg/dl (70-90) 136 mg/dl (70-90) Anion Gap 8.0 mmol/L (3-11) Est Creatinine Clear Calc Drug Dose 7.8 ml/min Estimated GFR () 5.9 Estimated GFR (Non- 5.1 BUN/Creatinine Ratio 7.3 (10-20) Calcium Level 8.2 mg/dl (8.5-10.1) Phosphorus Level 6.4 mg/dl (2.5-4.9) Albumin 2.3 gm/dl (3.4-5.0) Allergies Coded Allergies: Atorvastatin (Verified Allergy, Mild, UNKNOWN, 05/29/17) Calcium Channel Blockers (Verified Allergy, Mild, UNKNOWN, 05/29/17) Carbapenems (Verified Allergy, Mild, UNKNOWN, 05/29/17) Cephalosporins (Verified Allergy, Mild, UNKNOWN, 05/29/17) Penicillins (Verified Allergy, Mild, UNKNOWN, 05/29/17) Medications Current Inpatient Medications Medications (Trade) Dose Ordered Sig/Kaley Route Start Time Stop Time Status Last Admin Dose Admin Acetaminophen (Tylenol Tab) 650 mg Q4H PRN PO 07/26/17 23:45 08/25/17 23:44 07/28/17 02:00 650 MG Magnesium Hydroxide (Milk Of Magnesia Susp) 30 ml Q12H PRN PO 07/26/17 23:45 08/25/17 23:44 Ondansetron HCl (Zofran Inj) 4 mg Q6H PRN IV 07/26/17 23:45 08/25/17 23:44 Nitroglycerin (Nitrostat Tab) 0.4 mg UD PRN SL 07/26/17 23:45 08/25/17 23:44 Glucose (Glucose 40% Gel) 15-30 GRAMS 15 GRAMS... UD PRN PO 07/26/17 23:45 08/25/17 23:44 Glucose (Glucose Chew Tab) 4-8 Tablets 4 Tabl... UD PRN PO 07/26/17 23:45 08/25/17 23:44 Dextrose (Dextrose 50% 50ML Syringe) 25-50ML OF 50% DW IV FOR... UD PRN IV 07/26/17 23:45 08/25/17 23:44 Glucagon (Glucagon Inj) 1 mg UD PRN SQ 07/26/17 23:45 08/25/17 23:44 Aspirin (Ecotrin Tab) 325 mg DAILY PO 07/27/17 09:00 08/26/17 08:59 07/28/17 07:34 325 MG Clopidogrel Bisulfate (plAVix TAB) 75 mg DAILY PO 07/27/17 09:00 08/26/17 08:59 07/28/17 07:34 75 MG Docusate Sodium (coLACE CAP) 100 mg DAILY PO 07/27/17 09:00 08/26/17 08:59 07/28/17 07:35 100 MG Furosemide (Lasix Tab) 40 mg BID PO 07/27/17 09:00 08/26/17 08:59 07/28/17 07:35 40 MG Metoprolol Succinate (Toprol Xl Tab) 25 mg DAILY PO 07/27/17 09:00 08/26/17 08:59 07/28/17 07:33 25 MG Rosuvastatin Calcium (Crestor Tab) 10 mg DAILY PO 07/27/17 09:00 08/26/17 08:59 07/28/17 07:35 10 MG Sodium Bicarbonate (Sodium Bicarbonate Tab) 650 mg BID PO 07/27/17 09:00 08/26/17 08:59 Future Hold 07/27/17 07:48 650 MG Ferrous Sulfate (Feosol Tab) 325 mg BID PO 07/27/17 09:00 08/26/17 08:59 07/28/17 07:34 325 MG Sevelamer HCl (Renagel Tab) 800 mg HS PO 07/27/17 21:00 08/26/17 20:59 07/27/17 20:41 800 MG Sevelamer HCl (Renagel Tab) 2,400 mg AC PO 07/27/17 07:00 08/26/17 06:59 07/28/17 05:59 2,400 MG Pantoprazole Sodium (Protonix Tab) 40 mg QAM PO 07/27/17 09:00 08/26/17 08:59 07/28/17 07:32 40 MG Insulin Aspart (novoLOG ASPART) SLIDING SCALE G... ACHS SC 07/27/17 07:00 08/26/17 06:59 07/28/17 08:27 1 UNITS Heparin Sodium (Porcine) (Heparin Sq 5000 Unit/0.5ml) 5,000 unit Q8 SQ 07/27/17 06:00 08/26/17 05:59 07/28/17 06:00 5,000 UNIT Impression (1) ESRD on dialysis (2) Acute respiratory failure with hypoxia (3) CHF (congestive heart failure) (4) Anemia (5) COPD (chronic obstructive pulmonary disease) (6) SOB (shortness of breath) Brooke Fitch is a 62-year-old female with ESRD on HD. She was admitted with shortness of breath. Evaluation notable for acute on chronic systolic CHF. She completed HD yesterday without complications. Symptomatic improvement with UF 2 kg. Recommendations -- BP and volume status are acceptable. Plan HD tomorrow -- Metabolic profile acceptable -- Medications appropriate for IHD. Hold NaHCO3 -- Epogen with HD -- Monitor metabolic profile and CBC daily -- Sevelamer QAC, check PO4 with AM labs -- Renal diet with sodium and potassium restriction
--- NOTE | 2017-07-28 12:01 | Cardiology Consultation ---
Cardiology Consultation Date of Consultation: Jul 28, 2017. Requesting Physician: Dmitriy Reason for Consultation: CAD,CHF Pt evaluation today including: conversation w/ patient, conversation w/ family , physical exam, chart review, lab review, review of studies, review of inpatient medication list, conversation w/ attending History of Present Illness The patient is a 62-year-old woman with a history of coronary artery disease, congestive heart failure and peripheral vascular disease who initially presented to [facility] with acute dyspnea. Patient states that last Wednesday she underwent her routine dialysis and was feeling well afterwards. She states that 2 days ago she began to experience fairly acute worsening shortness of breath. There was no associated chest pain or chest discomfort. There was no coughing. Patient did not report worsening peripheral edema or abdominal distention. She did not have significant dizziness or lightheadedness except while she was in the ambulance being transported to the hospital. Her initial intention was to be transported to [facility] but her condition deteriorated and she was transferred [facility] which was closer. Patient was placed on CPAP as well as administer diuretic therapy with some stabilization of her condition. She was subsequently transferred to [facility] for an additional evaluation. Patient was recently transition from peritoneal dialysis to hemodialysis. Her peritoneal dialysis catheter was not functional and she was felt to be high risk for additional surgery. Since transitioning hemodialysis she has had some difficulties maintaining volume. By her report she was recently admitted to [facility] with hyperkalemia and suffered a cardiac arrest. This was believed to be related to electrolytes by report. In general the patient is an active person who is currently limited mostly by right foot drop. She underwent a recent vascular procedure which resulted in foot drop. She therefore has to ambulate with a walker. Prior to that she had significant claudication which limited her activity. She does have some baseline dyspnea but does not appear to be limited as such. She occasionally has elements of orthopnea. Recently she has had some paroxysmal nocturnal dyspnea as well. She does report some recent dietary indiscretion having and sour cried out, a full hot dog any piece of kielbasa of recently. Patient did undergo diuretic therapy and dialysis since admission. Her breathing has returned to 90% of normal at this point. Past Medical/Surgical History Reported myocardial infarction in 1998 Multiple percutaneous interventions the last of which she believes was in 2002 Ischemic cardiomyopathy with congestive heart failure End-stage renal disease previously on peritoneal dialysis now on hemodialysis Cardiac arrest possibly secondary to hyperkalemia Peripheral vascular disease Past surgical history Hemodialysis and peritoneal dialysis access procedures Recent right lower extremity peripheral artery bypass Family History Noncontributory given her current disease Social History Smoking Status: Former Smoker History of Alcohol Use: No Patient recently moved in with her daughter. Review of Systems Respiratory: No cough, No shortness of breath Cardiac: No chest pain, No palpitations Patient has right foot drop as noted above. She continues to have some claudication in the left leg but the right leg is improved. No current abdominal pain. No recent fevers or chills. All Other Systems: Reviewed and Negative Allergies Coded Allergies: Atorvastatin (Verified Allergy, Mild, UNKNOWN, 05/29/17) Calcium Channel Blockers (Verified Allergy, Mild, UNKNOWN, 05/29/17) Carbapenems (Verified Allergy, Mild, UNKNOWN, 05/29/17) Cephalosporins (Verified Allergy, Mild, UNKNOWN, 05/29/17) Penicillins (Verified Allergy, Mild, UNKNOWN, 05/29/17) Medications Current Inpatient Medications Medications (Trade) Dose Ordered Sig/Kaley Route Start Time Stop Time Status Last Admin Dose Admin Acetaminophen (Tylenol Tab) 650 mg Q4H PRN PO 07/26/17 23:45 08/25/17 23:44 07/28/17 02:00 650 MG Magnesium Hydroxide (Milk Of Magnesia Susp) 30 ml Q12H PRN PO 07/26/17 23:45 08/25/17 23:44 Ondansetron HCl (Zofran Inj) 4 mg Q6H PRN IV 07/26/17 23:45 08/25/17 23:44 Nitroglycerin (Nitrostat Tab) 0.4 mg UD PRN SL 07/26/17 23:45 08/25/17 23:44 Glucose (Glucose 40% Gel) 15-30 GRAMS 15 GRAMS... UD PRN PO 07/26/17 23:45 08/25/17 23:44 Glucose (Glucose Chew Tab) 4-8 Tablets 4 Tabl... UD PRN PO 07/26/17 23:45 08/25/17 23:44 Dextrose (Dextrose 50% 50ML Syringe) 25-50ML OF 50% DW IV FOR... UD PRN IV 07/26/17 23:45 08/25/17 23:44 Glucagon (Glucagon Inj) 1 mg UD PRN SQ 07/26/17 23:45 08/25/17 23:44 Aspirin (Ecotrin Tab) 325 mg DAILY PO 07/27/17 09:00 08/26/17 08:59 07/28/17 07:34 325 MG Clopidogrel Bisulfate (plAVix TAB) 75 mg DAILY PO 07/27/17 09:00 08/26/17 08:59 07/28/17 07:34 75 MG Docusate Sodium (coLACE CAP) 100 mg DAILY PO 07/27/17 09:00 08/26/17 08:59 07/28/17 07:35 100 MG Furosemide (Lasix Tab) 40 mg BID PO 07/27/17 09:00 08/26/17 08:59 07/28/17 07:35 40 MG Metoprolol Succinate (Toprol Xl Tab) 25 mg DAILY PO 07/27/17 09:00 08/26/17 08:59 07/28/17 07:33 25 MG Rosuvastatin Calcium (Crestor Tab) 10 mg DAILY PO 07/27/17 09:00 08/26/17 08:59 07/28/17 07:35 10 MG Sodium Bicarbonate (Sodium Bicarbonate Tab) 650 mg BID PO 07/27/17 09:00 08/26/17 08:59 Future Hold 07/27/17 07:48 650 MG Ferrous Sulfate (Feosol Tab) 325 mg BID PO 07/27/17 09:00 08/26/17 08:59 07/28/17 07:34 325 MG Sevelamer HCl (Renagel Tab) 800 mg HS PO 07/27/17 21:00 08/26/17 20:59 07/27/17 20:41 800 MG Sevelamer HCl (Renagel Tab) 2,400 mg AC PO 07/27/17 07:00 08/26/17 06:59 07/28/17 11:41 2,400 MG Pantoprazole Sodium (Protonix Tab) 40 mg QAM PO 07/27/17 09:00 08/26/17 08:59 07/28/17 07:32 40 MG Insulin Aspart (novoLOG ASPART) SLIDING SCALE G... ACHS SC 07/27/17 07:00 08/26/17 06:59 07/28/17 11:43 7 UNITS Heparin Sodium (Porcine) (Heparin Sq 5000 Unit/0.5ml) 5,000 unit Q8 SQ 07/27/17 06:00 08/26/17 05:59 07/28/17 06:00 5,000 UNIT Physical Exam Vital Signs Past 12 Hours Date Time Temp Pulse Resp B/P (MAP) Pulse Ox O2 Delivery O2 Flow Rate FiO2 07/28/17 08:00 98 Nasal Cannula 2.0 07/28/17 07:42 36.6 76 22 119/65 (83) 98 Nasal Cannula 2.0 07/28/17 04:02 Nasal Cannula 2.0 07/28/17 03:29 36.9 79 18 117/73 (88) 92 Nasal Cannula 2.0 07/28/17 00:05 Nasal Cannula 2.0 She is alert and oriented x3. Mood affect appear normal. She answered all questions appropriately. HEENT: Sclerae are anicteric. Pupils are equal and reactive to light and accommodation. Extraocular movements were intact. Neuro: Cranial nerves intact Neck: Examination of the submandibular region did not reveal any significant lymphadenopathy. Carotids are palpable bilaterally and free of bruits on auscultation. There was no evidence of jugular venous distention. The thyroid was not enlarged. Lungs: Lungs are clear to auscultation bilaterally. There are no rales wheezes or rhonchi. She has normal respiratory effort without use of accessory muscles. There is normal pulmonary excursion. Cardiac: The rhythm was regular. S1 and S2 were normal. There are no murmurs on examination. The PMI was not markedly displaced on palpation. Abdomen: The abdomen was soft and nontender. Extremities: Patient has bilateral radial pulses that are equal in intensity. There is no evidence cyanosis or clubbing. There was no evidence of significant peripheral edema bilaterally. There is a scar on the right calf which appears well healed. She has footdrop involving the right foot. There is a dialysis fistula in the left upper extremity with positive bruit and thrill. Skin: There are no rashes noted on examination today. Data Laboratory Results: Last 24 Hours Test 07/27/17 12:10 07/27/17 15:06 07/27/17 16:15 07/27/17 17:03 Bedside Glucose 105 mg/dl 177 mg/dl Hepatitis B Surface Antigen NEG Hepatitis B Surface Antibody NEG Troponin I 0.119 ng/ml Test 1/2/18 20:04 07/28/17 05:43 07/28/17 06:51 07/28/17 11:18 Bedside Glucose 120 mg/dl 136 mg/dl 208 mg/dl Sodium Level 134 mmol/L Potassium Level 5.7 mmol/L Chloride Level 102 mmol/L Carbon Dioxide Level 24 mmol/L Anion Gap 8.0 mmol/L Blood Urea Nitrogen 58 mg/dl Creatinine 7.76 mg/dl Est Creatinine Clear Calc Drug Dose 7.8 ml/min Estimated GFR () 5.9 Estimated GFR (Non- 5.1 BUN/Creatinine Ratio 7.3 Random Glucose 114 mg/dl Calcium Level 8.2 mg/dl Phosphorus Level 6.4 mg/dl Albumin 2.3 gm/dl Imaging: Chest x-ray was obtained at the time of admission which revealed pulmonary edema EKG: Normal sinus rhythm with some mild QRS widening. Poor R-wave progression in the precordial leads Telemetry reviewed: Sinus rhythm Echocardiogram performed May 2017: Ejection fraction 45%. Severe mitral annular calcification with moderate mitral stenosis. Left atrial enlargement. Stage III diastolic dysfunction. Echocardiogram performed at [facility] June 2017: Ejection fraction 30%. Mild mitral stenosis with moderate mitral regurgitation. Left atrial enlargement. Assessment & Plan 1. Dyspnea: Patient clearly had an element of pulmonary vascular congestion. She has both left ventricular systolic and diastolic dysfunction. She also has renal failure. I suspect it was a combination of these factors as well as dietary indiscretion which resulted in her decompensation. She appeared to have a fairly acute decompensation and there is a possibility this was related to an occult arrhythmia or transient hypertension. The possibility of transient ischemia is also possible, but her cardiac biomarkers are fairly low even in the setting of her renal dysfunction. The trajectory of her troponins is also flat. She also did not report symptoms of chest discomfort. She certainly could have an element of transient ischemia, but I doubt acute coronary syndrome. She appears to have had adequate therapy initially with diuresis and BiPAP in later with dialysis. At this point her examination is relatively benign and her symptoms are nearly resolved. He would seem reasonable to continue her on an outpatient dose of diuretic and reassess her dry weight for continued outpatient hemodialysis. 2. Ischemic cardiomyopathy: Patient's ejection fraction continues to be poor. And May was felt to be 45%, more recently 30%. She does not describe symptoms of coronary insufficiency or angina. She does report being advised to consider surgical revascularization recently. She may have had an ischemic evaluation at an outside facility of which we are not currently aware. I think attempting to retrieve records from [place] may be helpful deciding if any additional ischemic evaluation is warranted. In any event she has been maintained on a diuretic and beta blockade. Unclear why she is not on Manjeet inhibition as well. She is already on dialysis and there does not appear to be any significant risk of further renal decompensation. 3. Coronary artery disease: Patient does not give a good history for angina in the past. She is unclear what symptoms prompted her initial evaluation or series of percutaneous interventions. She states that occasionally she will get hot and diaphoretic. She felt that this was her anginal equivalent. He has not had those symptoms recently. She cannot recall having had any intervention in the past few years. She thinks she may have had a coronary evaluation at the time of her assessment for renal transplant 3 years ago. She is currently on dual anti-platelet therapy and high-dose rosuvastatin. 4. Valvular heart disease: Patient has an element of mitral stenosis and regurgitation. This point there is no indication for further therapy. She does have marked left atrial enlargement and is at risk for atrial fibrillation. No arrhythmia has currently been documented. Given the mild to moderate degree of her valvular dysfunction I do not believe this played a significant role in her recent decompensation.
--- NOTE | 2017-07-28 12:31 | ECHOCARDIOGRAM REPORT ---
*NOTICE TO RECEIVING LIBERTARIAN AGENCY This information is strictly Confidential and protected under [place] law. [place] law prohibits you from making any further disclosure of this information unless further disclosure is expressly permitted by the written consent of the person to whom it pertains or is authorized by law. A general authorization for the release of medical or other information is not sufficient for this purpose. Hospital accepts no responsibility if the information is made available to any other person, INCLUDING THE PATIENT. Interpretation Summary * Name: HENRY LEON Study Date: 07/28/2017 07:39 AM BP: 119/65 mmHg * Patient Location: C.2T\S\S231\S\1 HR: 79 * : 1955 (M/d/yyyy) Gender: Female Height: 63 in * Age: 62 yrs Ethnicity: [place] Weight: 194 lb * Ordering Physician: Lucio Lewis * Referring Physician: No Doctor, Assigned * Performed By: Deyanira Steinberg RCS * * Reason For Study: CHF * BSA: 1.9 m2 * -- Conclusions -- * 1. Normal LV size. Mild concentric LVH. * 2. Mild LV dysfunction. LVEF 40-45%. Mid to apical inferior and septal akinesis. * 3. Normal RV size and function. * 4. Severe mitral annular calcification. Mild mitral regurgitation. Mild mitral stenosis. * 5. Normal estimated PA and RA pressures. * 6. Grade II diastolic dysfunction. * 7. Compared with prior study o n 05/30/2017: No significant changes. Procedure Details * A complete two-dimensional transthoracic echocardiogram was performed (2D, M-mode, Doppler and color flow Doppler). Left Ventricle * The left ventricle is grossly normal size. * There is mild concentric left ventricular hypertrophy. * Ejection Fraction = 40-45%. * Akinetic inferior and septal mid to apical segments (see bullseye). Right Ventricle * The right ventricle is grossly normal size. * The right ventricular systolic function is normal as assessed by tricuspid annular plane systolic excursion (TAPSE) (normal >1.5 cm). Atria * The left atrium is moderately dilated. * The right atrium is mildly dilated. * No ASD detected; PFO is not assessed. Mitral Valve * There is moderate to severe mitral annular calcification. * There is mild mitral stenosis. * There is mild mitral regurgitation. Tricuspid Valve * There is trace tricuspid regurgitation. Aortic Valve * The aortic valve opens well. * No hemodynamically significant valvular aortic stenosis. * There is no significant aortic regurgitation. * Trace aortic regurgitation. Pulmonic Valve * The pulmonary valve is inadequately visualized, but the Doppler data is adequate for interpretation. * There is no pulmonic valvular stenosis. * Trace pulmonic valvular regurgitation. Great Vessels * The aortic root and proximal ascending aorta are normal sized. Pericardium/Pleural * There is no pericardial effusion. Great Vessels * Normal inferior vena cava size and collapsability with sniff indicates a normal right atrial pressure of 3 mmHg Left Ventricular Diastolic Function * Diastolic dysfunction, Grade II (pseudonormalization pattern). MMode 2D Measurements and Calculations IVSd 1.2 cm IVSs 2.0 cm LVIDd 5.4 cm LVIDs 3.8 cm LVPWd 1.5 cm LVPWs 1.8 cm IVS/LVPW 0.83 FS 29.5 % EDV(Teich) 138.5 ml ESV(Teich) 61.0 ml EF(Teich) 56.0 % EDV(cubed) 153.4 ml ESV(cubed) 53.8 ml EF(cubed) 64.9 % % IVS thick 62.7 % % LVPW thick 22.9 % LV mass(C)d 308.4 grams LV mass(C)dI 161.6 grams/m\S\2 LV mass(C)s 319.3 grams LV mass(C)sI 167.2 grams/m\S\2 SV(Teich) 77.5 ml SI(Teich) 40.6 ml/m\S\2 SV(cubed) 99.6 ml SI(cubed) 52.2 ml/m\S\2 Ao root diam 2.7 cm Ao root area 5.8 cm\S\2 LA dimension 5.1 cm LA/Ao 1.9 LVOT diam 2.0 cm LVOT area 3.3 cm\S\2 Doppler Measurements and Calculations MV E max hank 154.8 cm/sec MV A max hank 97.6 cm/sec MV E/A 1.6 MV P1/2t max hank 185.5 cm/sec MV P1/2t 73.9 msec MVA(P1/2t) 3.0 cm\S\2 MV dec slope 735.1 cm/sec\S\2 MV dec time 0.21 sec MR max hank 405.8 cm/sec MR max PG 65.9 mmHg PA V2 max 94.0 cm/sec PA max PG 3.5 mmHg TR max hank 242.9 cm/sec
[2017-07-29] VITALS (26 sets, daily range): BP systolic 116–184; BP diastolic 59–99; PULSE 76–95; TEMP 36.2–37.2; O2SAT 91–100
[2017-07-29] MEDS: HEPARIN SOD 5000 UNIT/0.5 ML CARP SQ SCH ×3 (06:00→21:29)
[2017-07-29 06:04] LABS: HEMATOCRIT 27.6 % (37-47); HEMOGLOBIN 8.4 g/dL (12.0-16.0); MEAN CELL VOLUME 90.8 fL (80-100); MEAN CORPUSCULAR HEMOGLOBIN 27.6 pg (25-34); MEAN CORPUSCULAR HGB CONC 30.4 g/dl (32-36); MEAN PLATELET VOLUME 9.4 fL (7.4-10.4); PLATELET COUNT 219 K/uL (130-400); RED CELL DISTRIBUTION WIDTH CV 17.3 % (11.5-14.5); RED CELL DISTRIBUTION WIDTH SD 57.2 fL (36.4-46.3); WHITE BLOOD COUNT 7.48 K/uL (4.8-10.8)
[2017-07-29] MEDS: SEVELAMER HYDROCH 800 MG TAB PO SCH ×4 (06:26→21:22)
[2017-07-29 06:47] LABS: ALBUMIN 2.4 gm/dl (3.4-5.0); CALCIUM 8.3 mg/dl (8.5-10.1); CREATININE 9.11 mg/dl (0.60-1.20); POTASSIUM 5.3 mmol/L (3.5-5.1)
[2017-07-29] MEDS: INSULIN ASPART 100 UNITS/ML 3 ML PEN SC SCH ×4 (08:36→21:00)
--- NOTE | 2017-07-29 08:38 | Family Medicine Progress Note ---
Progress Note Date of Service Jul 29, 2017. Subjective Pt evaluation today including: conversation w/ patient, conversation w/ family , physical exam, chart review, lab review, review of studies, review of inpatient medication list Pain: denies PO Intake: adequate Reports productive cough, Denies CP ,SOB, palpitation, presyncope. felt Nauseated, but sensation has resolved. having soft stools. Constitutional: No fever, No weakness Medications Current Inpatient Medications Medications (Trade) Dose Ordered Sig/Kaley Route Start Time Stop Time Status Last Admin Dose Admin Acetaminophen (Tylenol Tab) 650 mg Q4H PRN PO 07/26/17 23:45 08/25/17 23:44 07/28/17 02:00 650 MG Magnesium Hydroxide (Milk Of Magnesia Susp) 30 ml Q12H PRN PO 07/26/17 23:45 08/25/17 23:44 Ondansetron HCl (Zofran Inj) 4 mg Q6H PRN IV 07/26/17 23:45 08/25/17 23:44 Nitroglycerin (Nitrostat Tab) 0.4 mg UD PRN SL 07/26/17 23:45 08/25/17 23:44 Glucose (Glucose 40% Gel) 15-30 GRAMS 15 GRAMS... UD PRN PO 07/26/17 23:45 08/25/17 23:44 Glucose (Glucose Chew Tab) 4-8 Tablets 4 Tabl... UD PRN PO 07/26/17 23:45 08/25/17 23:44 Dextrose (Dextrose 50% 50ML Syringe) 25-50ML OF 50% DW IV FOR... UD PRN IV 07/26/17 23:45 08/25/17 23:44 Glucagon (Glucagon Inj) 1 mg UD PRN SQ 07/26/17 23:45 08/25/17 23:44 Aspirin (Ecotrin Tab) 325 mg DAILY PO 07/27/17 09:00 08/26/17 08:59 07/28/17 07:34 325 MG Clopidogrel Bisulfate (plAVix TAB) 75 mg DAILY PO 07/27/17 09:00 08/26/17 08:59 07/28/17 07:34 75 MG Docusate Sodium (coLACE CAP) 100 mg DAILY PO 07/27/17 09:00 08/26/17 08:59 07/28/17 07:35 100 MG Furosemide (Lasix Tab) 40 mg BID PO 07/27/17 09:00 08/26/17 08:59 07/28/17 21:41 40 MG Metoprolol Succinate (Toprol Xl Tab) 25 mg DAILY PO 07/27/17 09:00 08/26/17 08:59 07/28/17 07:33 25 MG Rosuvastatin Calcium (Crestor Tab) 10 mg DAILY PO 07/27/17 09:00 08/26/17 08:59 07/28/17 07:35 10 MG Sodium Bicarbonate (Sodium Bicarbonate Tab) 650 mg BID PO 07/27/17 09:00 08/26/17 08:59 Future Hold 07/27/17 07:48 650 MG Ferrous Sulfate (Feosol Tab) 325 mg BID PO 07/27/17 09:00 08/26/17 08:59 07/28/17 21:41 325 MG Sevelamer HCl (Renagel Tab) 800 mg HS PO 07/27/17 21:00 08/26/17 20:59 07/28/17 21:41 800 MG Sevelamer HCl (Renagel Tab) 2,400 mg AC PO 07/27/17 07:00 08/26/17 06:59 07/29/17 06:26 2,400 MG Pantoprazole Sodium (Protonix Tab) 40 mg QAM PO 07/27/17 09:00 08/26/17 08:59 07/28/17 07:32 40 MG Insulin Aspart (novoLOG ASPART) SLIDING SCALE G... ACHS SC 07/27/17 07:00 08/26/17 06:59 07/28/17 16:52 4 UNITS Heparin Sodium (Porcine) (Heparin Sq 5000 Unit/0.5ml) 5,000 unit Q8 SQ 07/27/17 06:00 08/26/17 05:59 07/28/17 21:43 5,000 UNIT Objective Vital Signs Date Time Temp Pulse Resp B/P (MAP) Pulse Ox O2 Delivery O2 Flow Rate FiO2 07/29/17 07:22 36.5 86 18 116/70 (85) 91 Nasal Cannula 1.0 07/29/17 05:30 36.5 87 20 146/80 (102) 100 Nasal Cannula 3.0 07/29/17 05:00 95 Room Air 07/29/17 04:00 Nasal Cannula 2.0 07/29/17 00:00 Nasal Cannula 2.0 07/28/17 23:53 36.5 87 17 149/82 (104) 99 Nasal Cannula 2.0 07/28/17 20:00 Nasal Cannula 2.0 07/28/17 19:26 36.6 86 18 152/74 (100) 100 Nasal Cannula 2.0 07/28/17 16:00 98 Nasal Cannula 2.0 07/28/17 15:01 36.6 78 133/73 (93) 100 Nasal Cannula 2.0 07/28/17 12:20 37.0 81 20 122/70 (87) 99 Nasal Cannula 2.0 07/28/17 12:00 98 Nasal Cannula 2.0 Physical Exam Notes: General Appearance: WD/WN, no apparent distress Eyes: PERRL, EOMI Neck: supple, no adenopathy, trachea midline Respiratory/Chest: lungs clear, normal breath sounds, no respiratory distress Cardiovascular: regular rate, rhythm, no edema, no murmur Abdomen: normal bowel sounds, non tender, soft Neurologic/Psychiatric: alert, normal mood/affect Skin: normal color, warm/dry Laboratory Results 07/29/17 05:19 07/29/17 05:19 Test 07/29/17 05:19 07/29/17 07:58 Red Blood Count 3.04 M/uL (4.2-5.4) Mean Corpuscular Volume 90.8 fL (80-100) Mean Corpuscular Hemoglobin 27.6 pg (25-34) Mean Corpuscular Hemoglobin Concent 30.4 g/dl (32-36) RDW Standard Deviation 57.2 fL (36.4-46.3) RDW Coefficient of Variation 17.3 % (11.5-14.5) Mean Platelet Volume 9.4 fL (7.4-10.4) Anion Gap 9.0 mmol/L (3-11) Est Creatinine Clear Calc Drug Dose 6.6 ml/min Estimated GFR () 4.8 Estimated GFR (Non- 4.2 BUN/Creatinine Ratio 8.2 (10-20) Calcium Level 8.3 mg/dl (8.5-10.1) Phosphorus Level 7.0 mg/dl (2.5-4.9) Albumin 2.4 gm/dl (3.4-5.0) Bedside Glucose 139 mg/dl (70-90) Assessment and Plan 62 yo F with h/o End stage Renal disease on Dialysis, CHF, DM, HTN, HLD, CAD, recent cardiac arrest presenting with with progressive dyspnea.found to have acute Hypoxic respiratory failure 1) Acute Hypoxic Respiratory Failure - 2/2 CHF and Fluid overload - Continue Furosemide 40 mg BID - Nephrology following, successfully dialyzed today 2) Hyperkalemia - K 6-->5.7-->5.3 - dialysis today 3) Hypoglycemia (T2DM) - resolved - Sliding scale insulin 4) CHF - ECHO from 05/30: Ejection Fraction = 40-45% Diastolic dysfunction, Grade III (restrictive pattern), consistent with markedly increased left atrial pressure. - Continue Lasix 5) ESRD - Cr 8.48-->7.76-->9.11 - Nephrology on board - Dialysis today 5) CAD , h/o cardiac arrest - elevated troponin - likely chronic in the setting of ESRD as opposed acute ischemia , Continue to monitor trend - Continue ASA, Plavix, metoprolol, rosuvastatin - Cardiology following, Echo report showing: Echo 07/29 * 1. Normal LV size. Mild concentric LVH. * 2. Mild LV dysfunction. LVEF 40-45%. Mid to apical inferior and septal akinesis. * 3. Normal RV size and function. * 4. Severe mitral annular calcification. Mild mitral regurgitation. Mild mitral stenosis. * 5. Normal estimated PA and RA pressures. * 6. Grade II diastolic dysfunction. * 7. Compared with prior study o n 05/30/2017: No significant changes. -Cardiology to determine need for ICD indicated in previous records. unclear as to cause of cardiac arrest be it arrhythmia vs fluid overload/hyperkalemia 6) Anemia - likely secondary to renal insufficiency - H/H 9.5/31.3 --> 8.4/27.6 - erythropoietin per Nephrology - F/u with Nephrology - follow daily CBC 7) DVT Prophylaxis - Heparin 5,000 units q8h 8) Code Status - Full Resuscitation Continued [facility] stay due to: multiple IV medications needed Discharge planning: home with home health Resident Tracking Resident Involvement: Resident Care Provided Care Provided: Adult Hospital Medicine History Resident Physician Supervision Note: I was present with Dr. Izaguirre during the history and exam. I discussed the case with the resident and agree with the findings and plan as documented in the note. Any exceptions or clarifications are listed here. Pt reports nearing her baseline for shortness of breath with both rest and activity, though her sx still persist. She reports some fatigue following dialysis, which is normal for her. She reports no fever, BELL, lightheadedness, palpitations. Reviewed records from [facility] in chart. General Appearance: no apparent distress, obese Respiratory: chest non-tender, lungs clear, no respiratory distress, decreased breath sounds (bases b/l) Cardiovascular: normal peripheral pulses, regular rate, rhythm, no edema, no murmur Gastrointestinal: normal bowel sounds, non tender, soft, no organomegaly Assessment/Plan 62 y/o female h/o ESRD on HD, CHF, DMII, HTN, HLD, CAD w/ recent arrest reported p/w acute onset SOB AHRF 2/2 volume overload in the setting of ESRD on HD and CHF/CAD w/ recent arrest - nephrology consulted, recommendations appreciated, dialysis T// - continue supplemental O2, wean as tolerated - continue lasix and monitor I/Os CHF w/ CAD, HLD - grade III diastolic dysfunction (may 2017) - cardiology consulted, recommendations appreciated. continue lasix, metoprolol, ASA, Plavix , Crestor Hyperkalemia - trend BMP DMII w/ hypoglycemia following insulin administration at [facility] - monitor FSBS , ISS ACD - monitor CBC DVT PPX - heparin FULL CODE
--- NOTE | 2017-07-29 10:41 | Nephrology Progress Note ---
Nephrology Progress Note Date of Service Jul 29, 2017. Chief Complaint ESRD Subjective No acute events overnight. No complaints this morning. Brooke was seen and evaluated during hemodialysis this morning. She is tolerating the treatment well. Qb and BP are appropriate. She denies shortness of breath. She denies chest pain or palpitations. Review of Systems A complete review of systems was performed. Pertinent positives are noted above. All other systems are negative. Vital Signs Last 8 Hrs Date Time Temp Pulse Resp B/P (MAP) Pulse Ox O2 Delivery O2 Flow Rate FiO2 07/29/17 10:15 79 184/79 07/29/17 10:00 89 176/87 07/29/17 09:45 79 154/67 07/29/17 09:30 84 161/79 07/29/17 09:15 93 163/81 07/29/17 09:00 82 157/76 07/29/17 08:45 79 172/85 07/29/17 08:30 84 168/84 07/29/17 08:15 36.2 89 155/86 (109) 07/29/17 08:00 91 Nasal Cannula 1.0 07/29/17 07:22 36.5 86 18 116/70 (85) 91 Nasal Cannula 1.0 07/29/17 05:30 36.5 87 20 146/80 (102) 100 Nasal Cannula 3.0 07/29/17 05:00 95 Room Air 07/29/17 04:00 Nasal Cannula 2.0 Last Recorded Weight Weight (Kilograms): 85.900 Physical Exam General Appearance: no apparent distress, + obese Head: normocephalic, atraumatic Eyes: normal inspection, sclerae normal ENT: normal ENT inspection, pharynx normal Respiratory/Chest: lungs clear, no respiratory distress, no accessory muscle use Cardiovascular: regular rate, rhythm, no gallop Abdomen/GI: non tender, soft Extremities/Musculoskelatal: normal inspection, no pedal edema, + pertinent finding (AVF with thrill and bruit) Neurologic/Psych: alert, normal mood/affect Social History Drug Use: none Marital Status: single Housing Status: lives with family Occupation: retired Laboratory Results Past 24 Hours 07/29/17 05:19 07/29/17 05:19 Test 07/28/17 11:18 07/28/17 16:25 07/28/17 20:39 07/29/17 05:19 Bedside Glucose 208 mg/dl (70-90) 134 mg/dl (70-90) 171 mg/dl (70-90) Red Blood Count 3.04 M/uL (4.2-5.4) Mean Corpuscular Volume 90.8 fL (80-100) Mean Corpuscular Hemoglobin 27.6 pg (25-34) Mean Corpuscular Hemoglobin Concent 30.4 g/dl (32-36) RDW Standard Deviation 57.2 fL (36.4-46.3) RDW Coefficient of Variation 17.3 % (11.5-14.5) Mean Platelet Volume 9.4 fL (7.4-10.4) Anion Gap 9.0 mmol/L (3-11) Est Creatinine Clear Calc Drug Dose 6.6 ml/min Estimated GFR () 4.8 Estimated GFR (Non- 4.2 BUN/Creatinine Ratio 8.2 (10-20) Calcium Level 8.3 mg/dl (8.5-10.1) Phosphorus Level 7.0 mg/dl (2.5-4.9) Albumin 2.4 gm/dl (3.4-5.0) Test 07/29/17 07:58 Bedside Glucose 139 mg/dl (70-90) Allergies Coded Allergies: Atorvastatin (Verified Allergy, Mild, UNKNOWN, 05/29/17) Calcium Channel Blockers (Verified Allergy, Mild, UNKNOWN, 05/29/17) Carbapenems (Verified Allergy, Mild, UNKNOWN, 05/29/17) Cephalosporins (Verified Allergy, Mild, UNKNOWN, 05/29/17) Penicillins (Verified Allergy, Mild, UNKNOWN, 05/29/17) Medications Current Inpatient Medications Medications (Trade) Dose Ordered Sig/Kaley Route Start Time Stop Time Status Last Admin Dose Admin Acetaminophen (Tylenol Tab) 650 mg Q4H PRN PO 07/26/17 23:45 08/25/17 23:44 07/28/17 02:00 650 MG Magnesium Hydroxide (Milk Of Magnesia Susp) 30 ml Q12H PRN PO 07/26/17 23:45 08/25/17 23:44 Ondansetron HCl (Zofran Inj) 4 mg Q6H PRN IV 07/26/17 23:45 08/25/17 23:44 Nitroglycerin (Nitrostat Tab) 0.4 mg UD PRN SL 07/26/17 23:45 08/25/17 23:44 Glucose (Glucose 40% Gel) 15-30 GRAMS 15 GRAMS... UD PRN PO 07/26/17 23:45 08/25/17 23:44 Glucose (Glucose Chew Tab) 4-8 Tablets 4 Tabl... UD PRN PO 07/26/17 23:45 08/25/17 23:44 Dextrose (Dextrose 50% 50ML Syringe) 25-50ML OF 50% DW IV FOR... UD PRN IV 07/26/17 23:45 08/25/17 23:44 Glucagon (Glucagon Inj) 1 mg UD PRN SQ 07/26/17 23:45 08/25/17 23:44 Aspirin (Ecotrin Tab) 325 mg DAILY PO 07/27/17 09:00 08/26/17 08:59 07/28/17 07:34 325 MG Clopidogrel Bisulfate (plAVix TAB) 75 mg DAILY PO 07/27/17 09:00 08/26/17 08:59 07/28/17 07:34 75 MG Docusate Sodium (coLACE CAP) 100 mg DAILY PO 07/27/17 09:00 08/26/17 08:59 07/28/17 07:35 100 MG Furosemide (Lasix Tab) 40 mg BID PO 07/27/17 09:00 08/26/17 08:59 07/28/17 21:41 40 MG Metoprolol Succinate (Toprol Xl Tab) 25 mg DAILY PO 07/27/17 09:00 08/26/17 08:59 07/28/17 07:33 25 MG Rosuvastatin Calcium (Crestor Tab) 10 mg DAILY PO 07/27/17 09:00 08/26/17 08:59 07/28/17 07:35 10 MG Sodium Bicarbonate (Sodium Bicarbonate Tab) 650 mg BID PO 07/27/17 09:00 08/26/17 08:59 Future Hold 07/27/17 07:48 650 MG Ferrous Sulfate (Feosol Tab) 325 mg BID PO 07/27/17 09:00 08/26/17 08:59 07/28/17 21:41 325 MG Sevelamer HCl (Renagel Tab) 800 mg HS PO 07/27/17 21:00 08/26/17 20:59 07/28/17 21:41 800 MG Sevelamer HCl (Renagel Tab) 2,400 mg AC PO 07/27/17 07:00 08/26/17 06:59 07/29/17 06:26 2,400 MG Pantoprazole Sodium (Protonix Tab) 40 mg QAM PO 07/27/17 09:00 08/26/17 08:59 07/28/17 07:32 40 MG Insulin Aspart (novoLOG ASPART) SLIDING SCALE G... ACHS SC 07/27/17 07:00 08/26/17 06:59 07/28/17 16:52 4 UNITS Heparin Sodium (Porcine) (Heparin Sq 5000 Unit/0.5ml) 5,000 unit Q8 SQ 07/27/17 06:00 08/26/17 05:59 07/28/17 21:43 5,000 UNIT Impression (1) ESRD on dialysis (2) Acute respiratory failure with hypoxia (3) CHF (congestive heart failure) (4) Anemia (5) COPD (chronic obstructive pulmonary disease) (6) SOB (shortness of breath) Brooke Fitch is a 62-year-old female with ESRD on HD. She was admitted with shortness of breath. Evaluation notable for acute on chronic systolic CHF. She was seen and evaluated today during hemodialysis. Recommendations -- HD today. UF goal 3-4 L as tolerated -- Low K bath for hyperkalemia -- Medications appropriate for IHD -- Epogen 70558 IU with HD -- Monitor metabolic profile and CBC daily -- Sevelamer QAC, check PO4 with AM labs -- Renal diet with sodium and potassium restriction
[2017-07-29] MEDS ORDERED: EPOETIN ALFA 10,000 UNITS/ML VIAL IV SCH (12:00)
[2017-07-29] MEDS: DOCUSATE SODIUM 100 MG CAP PO SCH (12:52)
[2017-07-29] MEDS: METOPROLOL SUCC 25MG EXT REL TAB PO SCH (12:52)
[2017-07-29] MEDS: FERROUS SULFATE 325 MG TAB PO SCH ×2 (12:52→21:21)
[2017-07-29] MEDS: CLOPIDOGREL BISULFATE 75 MG TAB PO SCH (12:52)
[2017-07-29] MEDS: PANTOprazole SOD 40 MG TAB PO SCH (12:52)
[2017-07-29] MEDS: ROSUVASTATIN CALCIUM 10 MG TAB PO SCH (12:57)
[2017-07-29] MEDS: FUROSEMIDE 40 MG TAB PO SCH ×2 (12:57→21:22)
[2017-07-29] MEDS: ASPIRIN 325 MG ECTAB PO SCH (12:57)
[2017-07-29] MEDS: ONDANSETRON INJ 2 MG/ML 2 ML VIAL IV PRN ×2 (15:01→22:27)
[2017-07-30] VITALS (8 sets, daily range): BP systolic 130–175; BP diastolic 67–76; PULSE 63–93; TEMP 36.7–37.1; O2SAT 92–96
[2017-07-30] MEDS ORDERED: METOCLOPRAMIDE HCL INJ 5 MG/ML 2 ML VIAL ONE (00:10)
[2017-07-30] MEDS ORDERED: METOCLOPRAMIDE HCL INJ 5 MG/ML 2 ML VIAL IM PRN (00:15)
[2017-07-30] MEDS: ACETAMINOPHEN 325 MG TAB PO PRN ×2 (00:19→14:01)
[2017-07-30] MEDS: HEPARIN SOD 5000 UNIT/0.5 ML CARP SQ SCH ×3 (05:37→21:39)
[2017-07-30 07:42] LABS: HEMOGLOBIN 8.6 g/dL (12.0-16.0); MEAN CORPUSCULAR HEMOGLOBIN 27.7 pg (25-34); MEAN CORPUSCULAR HGB CONC 30.7 g/dl (32-36); MEAN PLATELET VOLUME 9.3 fL (7.4-10.4); PLATELET COUNT 225 K/uL (130-400); RED CELL DISTRIBUTION WIDTH CV 17.2 % (11.5-14.5); RED CELL DISTRIBUTION WIDTH SD 56.3 fL (36.4-46.3); WHITE BLOOD COUNT 7.18 K/uL (4.8-10.8)
[2017-07-30] MEDS: CLOPIDOGREL BISULFATE 75 MG TAB PO SCH (09:00)
[2017-07-30] MEDS: ROSUVASTATIN CALCIUM 10 MG TAB PO SCH (09:00)
[2017-07-30] MEDS: ASPIRIN 325 MG ECTAB PO SCH (09:00)
[2017-07-30] MEDS: FUROSEMIDE 40 MG TAB PO SCH ×2 (09:00→21:35)
[2017-07-30] MEDS: DOCUSATE SODIUM 100 MG CAP PO SCH (09:00)
[2017-07-30] MEDS: METOPROLOL SUCC 25MG EXT REL TAB PO SCH (09:01)
[2017-07-30] MEDS: FERROUS SULFATE 325 MG TAB PO SCH ×2 (09:01→21:35)
[2017-07-30] MEDS: PANTOprazole SOD 40 MG TAB PO SCH (09:01)
[2017-07-30] MEDS: SEVELAMER HYDROCH 800 MG TAB PO SCH ×5 (09:01→21:35)
[2017-07-30] MEDS: INSULIN ASPART 100 UNITS/ML 3 ML PEN SC SCH ×4 (09:08→21:00)
--- NOTE | 2017-07-30 09:53 | Family Medicine Progress Note ---
Progress Note Date of Service Jul 30, 2017. Subjective Pt evaluation today including: conversation w/ patient, physical exam, chart review, lab review, review of studies, conversation w/ product management consultant (Khalida), review of inpatient medication list Nausea and vomiting last night. No abdominal pain. Having normal bowel movements. Last BM she reports yesterday was normal. No black tarry stool. Otherwise feeling back to her normal self. No chest pain, shortness of breath, presyncope, orthopnea or palpitations All Other Systems: Reviewed and Negative Medications Current Inpatient Medications Medications (Trade) Dose Ordered Sig/Kaley Route Start Time Stop Time Status Last Admin Dose Admin Acetaminophen (Tylenol Tab) 650 mg Q4H PRN PO 07/26/17 23:45 08/25/17 23:44 07/30/17 00:19 650 MG Magnesium Hydroxide (Milk Of Magnesia Susp) 30 ml Q12H PRN PO 07/26/17 23:45 08/25/17 23:44 Ondansetron HCl (Zofran Inj) 4 mg Q6H PRN IV 07/26/17 23:45 08/25/17 23:44 07/29/17 22:27 4 MG Nitroglycerin (Nitrostat Tab) 0.4 mg UD PRN SL 07/26/17 23:45 08/25/17 23:44 Glucose (Glucose 40% Gel) 15-30 GRAMS 15 GRAMS... UD PRN PO 07/26/17 23:45 08/25/17 23:44 Glucose (Glucose Chew Tab) 4-8 Tablets 4 Tabl... UD PRN PO 07/26/17 23:45 08/25/17 23:44 Dextrose (Dextrose 50% 50ML Syringe) 25-50ML OF 50% DW IV FOR... UD PRN IV 07/26/17 23:45 08/25/17 23:44 Glucagon (Glucagon Inj) 1 mg UD PRN SQ 07/26/17 23:45 08/25/17 23:44 Aspirin (Ecotrin Tab) 325 mg DAILY PO 07/27/17 09:00 08/26/17 08:59 07/30/17 09:00 325 MG Clopidogrel Bisulfate (plAVix TAB) 75 mg DAILY PO 07/27/17 09:00 08/26/17 08:59 07/30/17 09:00 75 MG Docusate Sodium (coLACE CAP) 100 mg DAILY PO 07/27/17 09:00 08/26/17 08:59 07/30/17 09:00 100 MG Furosemide (Lasix Tab) 40 mg BID PO 07/27/17 09:00 08/26/17 08:59 07/30/17 09:00 40 MG Metoprolol Succinate (Toprol Xl Tab) 25 mg DAILY PO 07/27/17 09:00 08/26/17 08:59 07/30/17 09:01 25 MG Rosuvastatin Calcium (Crestor Tab) 10 mg DAILY PO 07/27/17 09:00 08/26/17 08:59 07/30/17 09:00 10 MG Sodium Bicarbonate (Sodium Bicarbonate Tab) 650 mg BID PO 07/27/17 09:00 08/26/17 08:59 Future Hold 07/27/17 07:48 650 MG Ferrous Sulfate (Feosol Tab) 325 mg BID PO 07/27/17 09:00 08/26/17 08:59 07/30/17 09:01 325 MG Sevelamer HCl (Renagel Tab) 800 mg HS PO 07/27/17 21:00 08/26/17 20:59 07/29/17 21:22 800 MG Sevelamer HCl (Renagel Tab) 2,400 mg AC PO 07/27/17 07:00 08/26/17 06:59 07/30/17 09:01 2,400 MG Pantoprazole Sodium (Protonix Tab) 40 mg QAM PO 07/27/17 09:00 08/26/17 08:59 07/30/17 09:01 40 MG Insulin Aspart (novoLOG ASPART) SLIDING SCALE G... ACHS SC 07/27/17 07:00 08/26/17 06:59 07/30/17 09:08 7 UNITS Heparin Sodium (Porcine) (Heparin Sq 5000 Unit/0.5ml) 5,000 unit Q8 SQ 07/27/17 06:00 08/26/17 05:59 07/30/17 05:37 5,000 UNIT Metoclopramide HCl (Reglan Inj) 10 mg DAILY PRN IM 07/30/17 00:15 08/29/17 00:14 Objective Vital Signs Date Time Temp Pulse Resp B/P (MAP) Pulse Ox O2 Delivery O2 Flow Rate FiO2 07/30/17 08:00 93 Room Air 07/30/17 07:43 36.9 87 18 175/73 (107) 93 Room Air 07/30/17 04:00 Room Air 07/30/17 04:00 37.0 80 20 141/75 (97) 95 Room Air 07/30/17 00:00 Room Air 07/29/17 23:23 36.4 91 18 133/73 (93) 94 Room Air 07/29/17 20:16 98 Room Air 07/29/17 19:39 36.9 92 18 142/73 (96) 92 Room Air 07/29/17 16:21 36.7 83 18 142/70 (94) 92 Room Air 07/29/17 16:00 98 Room Air 07/29/17 14:29 88 92 07/29/17 13:02 37.2 86 20 139/76 (97) 98 Nasal Cannula 2.0 07/29/17 12:35 36.4 95 168/99 (122) 07/29/17 12:30 84 133/59 07/29/17 12:15 76 135/67 07/29/17 12:00 84 142/67 07/29/17 12:00 91 Nasal Cannula 07/29/17 11:45 91 142/99 07/29/17 11:30 81 168/81 07/29/17 10:15 79 184/79 07/29/17 10:00 89 176/87 Physical Exam General Appearance: WD/WN, no apparent distress Eyes: normal inspection (pupils equal), EOMI Neck: supple, no JVD Respiratory/Chest: chest non-tender, lungs clear (poor respiratory effort), normal breath sounds, no respiratory distress, no accessory muscle use Cardiovascular: regular rate, rhythm, no murmur Abdomen: normal bowel sounds, non tender, soft Extremities: no calf tenderness Neurologic/Psychiatric: alert, normal mood/affect Skin: normal color, no rash Laboratory Results 07/30/17 07:02 Test 07/30/17 07:02 07/30/17 07:33 Red Blood Count 3.11 M/uL (4.2-5.4) Mean Corpuscular Volume 90.0 fL (80-100) Mean Corpuscular Hemoglobin 27.7 pg (25-34) Mean Corpuscular Hemoglobin Concent 30.7 g/dl (32-36) RDW Standard Deviation 56.3 fL (36.4-46.3) RDW Coefficient of Variation 17.2 % (11.5-14.5) Mean Platelet Volume 9.3 fL (7.4-10.4) Bedside Glucose 143 mg/dl (70-90) Assessment and Plan 62 yo F with h/o End stage Renal disease on Dialysis, CHF, DM, HTN, HLD, CAD, recent cardiac arrest presenting with with progressive dyspnea.found to have acute Hypoxic respiratory failure Acute Hypoxic Respiratory Failure - 2/2 CHF and Fluid overload and resolved with dialysis - Continue Furosemide 40 mg BID - Nephrology following, successfully dialyzed today Hyperkalemia - K 6-->5.7-->5.3 - dialysis today Hypoglycemia (T2DM) - resolved - Sliding scale insulin CHF - ECHO from 05/30: Ejection Fraction = 40-45% Diastolic dysfunction, Grade III (restrictive pattern), consistent with markedly increased left atrial pressure. - Continue Lasix/dialysis - Continue BB, Unclear why she is not on an ACEi discussed with Dr Gaxiola who will review her past history and make the decision regarding this. ESRD - Appreciate nephrology management with ongoing dialysis CAD , h/o cardiac arrest - Continue ASA, Plavix, metoprolol, rosuvastatin - Cardiology following, Echo report showing: LVEF improved from outside hospital @ 40-45% Anemia - likely secondary to CKD - erythropoietin per Nephrology - F/u with Nephrology - follow daily CBC VTE Prophylaxis - Heparin 5,000 units q8h Code Status - Full Resuscitation as per patient wishes Disposition - continued inpatient stay due to nausea and vomiting in setting of many severe co-morbidities including recent cardiac arrest therefore will aim for discharge tomorrow. Resident Tracking Resident Involvement: Resident Care Provided Care Provided: Adult Hospital Medicine History Resident Physician Supervision Note: I was present with Dr. Lewis during the history and exam. I discussed the case with the resident and agree with the findings and plan as documented in the note. Any exceptions or clarifications are listed here. Pt reports new onset nausea with dry heaving which improved with zofran. This has happened previously, remotely, and was managed similarly. Her breathing has improved and is near baseline. Reports no chest pain, palpitations, lightheadedness. General Appearance: no apparent distress, obese Respiratory: chest non-tender, lungs clear, normal breath sounds, no respiratory distress Cardiovascular: normal peripheral pulses, regular rate, rhythm, no murmur Gastrointestinal: normal bowel sounds, non tender, soft, no organomegaly Assessment/Plan 62 y/o female h/o ESRD on HD, CHF, DMII, HTN, HLD, CAD w/ recent arrest reported p/w acute onset SOB Nausea/vomiting - zofran PRN, monitoring AHRF 2/2 volume overload in the setting of ESRD on HD and CHF/CAD w/ recent arrest - nephrology consulted, recommendations appreciated, dialysis T// - continue supplemental O2, wean as tolerated - continue lasix and monitor I/Os CHF w/ CAD, HLD - grade III diastolic dysfunction (may 2017) - cardiology consulted, recommendations appreciated. continue lasix, metoprolol, ASA, Plavix , Crestor Hyperkalemia - trend BMP DMII w/ hypoglycemia following insulin administration at [facility] - monitor FSBS , ISS ACD - monitor CBC DVT PPX - heparin FULL CODE
[2017-07-30] MEDS: ONDANSETRON INJ 2 MG/ML 2 ML VIAL IV PRN (12:07)
--- NOTE | 2017-07-30 17:25 | Cardiology Follow-Up ---
Subjective Date of Service: Jul 30, 2017. Pt evaluation today including: conversation w/ patient, physical exam, chart review, lab review, review of studies, review of inpatient medication list, conversation w/ attending History of Present Illness I spoke with the patient yesterday during her dialysis as well as today in her room. In general she is feeling much better. She states that her breathing is normal. She has not had any significant chest pain. She is not aware of any palpitations or arrhythmias. She has been minimally ambulatory due to her foot drop. Social History Smoking Status: Former Smoker History of Alcohol Use: No Review of Systems Respiratory: No cough, No shortness of breath Cardiac: No chest pain, No palpitations Patient has right foot drop as noted above. She continues to have some claudication in the left leg but the right leg is improved. No current abdominal pain. No recent fevers or chills. Objective Vital Signs Past 12 Hours Date Time Temp Pulse Resp B/P (MAP) Pulse Ox O2 Delivery O2 Flow Rate FiO2 07/30/17 16:00 Room Air 07/30/17 15:43 36.7 93 16 137/74 (95) 93 07/30/17 12:03 36.8 63 18 147/73 (97) 96 Room Air 07/30/17 12:00 93 Room Air 07/30/17 08:00 93 Room Air 07/30/17 07:43 36.9 87 18 175/73 (107) 93 Room Air Last Recorded Weight-Kilograms: 85.900 Intake & Output 8-Hour Column 07/30/17 07/31/17 07/31/17 16:00 00:00 08:00 Intake Total 500 ml Balance 500 ml 24-Hour Column 07/31/17 08:00 Intake Total 500 ml Balance 500 ml Physical Exam She is alert and oriented x3. Mood affect appear normal. She answered all questions appropriately. HEENT: Sclerae are anicteric. Pupils are equal and reactive to light and accommodation. Extraocular movements were intact. Neuro: Cranial nerves intact Lungs: Lungs are clear to auscultation bilaterally. There are no rales wheezes or rhonchi. She has normal respiratory effort without use of accessory muscles. There is normal pulmonary excursion. Cardiac: The rhythm was regular. S1 and S2 were normal. There are no murmurs on examination. Data Laboratory Results: Last 24 Hours Test 07/29/17 19:21 07/30/17 07:02 07/30/17 07:33 07/30/17 11:15 Bedside Glucose 169 mg/dl 143 mg/dl 169 mg/dl White Blood Count 7.18 K/uL Red Blood Count 3.11 M/uL Hemoglobin 8.6 g/dL Hematocrit 28.0 % Mean Corpuscular Volume 90.0 fL Mean Corpuscular Hemoglobin 27.7 pg Mean Corpuscular Hemoglobin Concent 30.7 g/dl RDW Standard Deviation 56.3 fL RDW Coefficient of Variation 17.2 % Platelet Count 225 K/uL Mean Platelet Volume 9.3 fL Test 07/30/17 16:47 Bedside Glucose 158 mg/dl Assessment and Plan 1. Dyspnea: Symptomatic we improved. This likely due to a reduction in her overall pulmonary vascular congestion due to dialysis. 2. Ischemic cardiomyopathy: Overall ejection fraction is in the intermediate range. There is no role for primary prophylaxis against sudden cardiac at this ejection fraction. She is on a beta-neha and we will reinitiate Manjeet inhibition. 3. Coronary artery disease: It seems the patient did have a recent coronary evaluation in [place]. These records are not currently available. She was advised to consider surgical revascularization which he continues to refuse. She did have mildly elevated biomarkers during this admission in the setting of her significant renal dysfunction. She has not had symptoms of chest discomfort. I did have an extensive discussion with her regarding surgical therapy and she continues to defer that option. 4. Valvular heart disease: Patient has an element of mitral stenosis and regurgitation. This point there is no indication for further therapy. She does have marked left atrial enlargement and is at risk for atrial fibrillation. No arrhythmia has currently been documented. Given the mild to moderate degree of her valvular dysfunction I do not believe this played a significant role in her recent decompensation. 5. Cardiac arrest: Patient was reported to have had a cardiac arrest at day outside facility in mid June. I did obtain these records today and reviewed them. It seems that she presented with hypoxic respiratory failure and developed polymorphic ventricular tachycardia. This was in the setting significant volume overload. Curiously her cardiac biomarkers were normal at the time of her presentation. I do not think this represents a good indication for an ICD as secondary prevention. My impression is that her decompensation was related to volume overload and hypoxia. She had malignant ventricular arrhythmia in the setting significant acidosis and hypoxia. While there is a small possibility that this represented an acute ischemic event, I think her gradual decompensation in the setting of normal biomarkers with speak otherwise. Her current level of LV dysfunction not severe enough to warrant primary prophylaxis against sudden cardiac with an ICD. Patient was previously advised to consider wearing a life vest in the recovery. Given her event and known heart disease. She continues to refuse this intervention.
[2017-07-31] VITALS (21 sets, daily range): BP systolic 104–161; BP diastolic 55–75; PULSE 79–92; TEMP 36.4–36.7; O2SAT 93–94
[2017-07-31] MEDS: HEPARIN SOD 5000 UNIT/0.5 ML CARP SQ SCH ×2 (05:44→14:35)
[2017-07-31 07:31] LABS: HEMATOCRIT 28.4 % (37-47)
[2017-07-31] MEDS: SEVELAMER HYDROCH 800 MG TAB PO SCH ×3 (07:42→15:31)
[2017-07-31 08:07] LABS: CALCIUM 8.6 mg/dl (8.5-10.1); CREATININE 8.85 mg/dl (0.60-1.20); POTASSIUM 5.1 mmol/L (3.5-5.1)
[2017-07-31] MEDS: FUROSEMIDE 40 MG TAB PO SCH (08:08)
[2017-07-31] MEDS: ASPIRIN 325 MG ECTAB PO SCH (08:08)
[2017-07-31] MEDS: DOCUSATE SODIUM 100 MG CAP PO SCH (08:08)
[2017-07-31] MEDS: PANTOprazole SOD 40 MG TAB PO SCH (08:08)
[2017-07-31] MEDS: CLOPIDOGREL BISULFATE 75 MG TAB PO SCH (08:08)
[2017-07-31] MEDS: METOPROLOL SUCC 25MG EXT REL TAB PO SCH (08:08)
[2017-07-31] MEDS: FERROUS SULFATE 325 MG TAB PO SCH (08:08)
[2017-07-31] MEDS: ROSUVASTATIN CALCIUM 10 MG TAB PO SCH (08:08)
[2017-07-31] MEDS: INSULIN ASPART 100 UNITS/ML 3 ML PEN SC SCH ×4 (08:12→19:25)
--- NOTE | 2017-07-31 09:22 | Family Medicine Progress Note ---
Progress Note Date of Service Jul 31, 2017. Subjective Pt evaluation today including: conversation w/ patient, physical exam, chart review, lab review, review of studies, review of inpatient medication list Feels much better today. No longer having nausea or vomiting. Has someone at home this weekend to stay with her. No chest pain, shortness of breath, orthopnea, palpitations or dizziness. All Other Systems: Reviewed and Negative Medications Current Inpatient Medications Medications (Trade) Dose Ordered Sig/Kaley Route Start Time Stop Time Status Last Admin Dose Admin Acetaminophen (Tylenol Tab) 650 mg Q4H PRN PO 07/26/17 23:45 08/25/17 23:44 07/30/17 14:01 650 MG Magnesium Hydroxide (Milk Of Magnesia Susp) 30 ml Q12H PRN PO 07/26/17 23:45 08/25/17 23:44 Ondansetron HCl (Zofran Inj) 4 mg Q6H PRN IV 07/26/17 23:45 08/25/17 23:44 07/30/17 12:07 4 MG Nitroglycerin (Nitrostat Tab) 0.4 mg UD PRN SL 07/26/17 23:45 08/25/17 23:44 Glucose (Glucose 40% Gel) 15-30 GRAMS 15 GRAMS... UD PRN PO 07/26/17 23:45 08/25/17 23:44 Glucose (Glucose Chew Tab) 4-8 Tablets 4 Tabl... UD PRN PO 07/26/17 23:45 08/25/17 23:44 Dextrose (Dextrose 50% 50ML Syringe) 25-50ML OF 50% DW IV FOR... UD PRN IV 07/26/17 23:45 08/25/17 23:44 Glucagon (Glucagon Inj) 1 mg UD PRN SQ 07/26/17 23:45 08/25/17 23:44 Aspirin (Ecotrin Tab) 325 mg DAILY PO 07/27/17 09:00 08/26/17 08:59 07/31/17 08:08 325 MG Clopidogrel Bisulfate (plAVix TAB) 75 mg DAILY PO 07/27/17 09:00 08/26/17 08:59 07/31/17 08:08 75 MG Docusate Sodium (coLACE CAP) 100 mg DAILY PO 07/27/17 09:00 08/26/17 08:59 07/31/17 08:08 100 MG Furosemide (Lasix Tab) 40 mg BID PO 07/27/17 09:00 08/26/17 08:59 07/31/17 08:08 40 MG Metoprolol Succinate (Toprol Xl Tab) 25 mg DAILY PO 07/27/17 09:00 08/26/17 08:59 07/31/17 08:08 25 MG Rosuvastatin Calcium (Crestor Tab) 10 mg DAILY PO 07/27/17 09:00 08/26/17 08:59 07/31/17 08:08 10 MG Sodium Bicarbonate (Sodium Bicarbonate Tab) 650 mg BID PO 07/27/17 09:00 08/26/17 08:59 Future Hold 07/27/17 07:48 650 MG Ferrous Sulfate (Feosol Tab) 325 mg BID PO 07/27/17 09:00 08/26/17 08:59 07/31/17 08:08 325 MG Sevelamer HCl (Renagel Tab) 800 mg HS PO 07/27/17 21:00 08/26/17 20:59 07/30/17 21:35 800 MG Sevelamer HCl (Renagel Tab) 2,400 mg AC PO 07/27/17 07:00 08/26/17 06:59 07/31/17 07:42 2,400 MG Pantoprazole Sodium (Protonix Tab) 40 mg QAM PO 07/27/17 09:00 08/26/17 08:59 07/31/17 08:08 40 MG Insulin Aspart (novoLOG ASPART) SLIDING SCALE G... ACHS SC 07/27/17 07:00 08/26/17 06:59 07/31/17 08:12 3 UNITS Heparin Sodium (Porcine) (Heparin Sq 5000 Unit/0.5ml) 5,000 unit Q8 SQ 07/27/17 06:00 08/26/17 05:59 07/31/17 05:44 5,000 UNIT Metoclopramide HCl (Reglan Inj) 10 mg DAILY PRN IM 07/30/17 00:15 08/29/17 00:14 07/30/17 14:39 10 MG Objective Vital Signs Date Time Temp Pulse Resp B/P (MAP) Pulse Ox O2 Delivery O2 Flow Rate FiO2 07/31/17 08:20 Room Air 07/31/17 07:04 36.6 84 16 122/73 (89) 93 Room Air 07/31/17 05:20 36.4 80 18 104/68 (80) 94 07/31/17 04:00 Room Air 07/31/17 00:00 Room Air 07/30/17 23:54 37.1 91 16 130/67 (88) 92 Room Air 07/30/17 20:00 Room Air 07/30/17 19:55 36.7 90 20 143/76 (98) 96 Room Air 07/30/17 16:00 Room Air 07/30/17 15:43 36.7 93 16 137/74 (95) 93 07/30/17 12:03 36.8 63 18 147/73 (97) 96 Room Air 07/30/17 12:00 93 Room Air Physical Exam General Appearance: no apparent distress, + obese Respiratory/Chest: lungs clear, normal breath sounds, no respiratory distress, no accessory muscle use Cardiovascular: regular rate, rhythm, no murmur Abdomen: normal bowel sounds, non tender, soft Extremities: no calf tenderness, normal capillary refill, + pedal edema (1+ b/ l (similar to previous day)) Neurologic/Psychiatric: no motor/sensory deficits (grossly normal), alert, oriented x 3 Skin: normal color, no rash Laboratory Results 07/31/17 07:06 07/31/17 07:06 Test 07/31/17 07:06 07/31/17 07:28 Anion Gap 10.0 mmol/L (3-11) Est Creatinine Clear Calc Drug Dose 6.8 ml/min Estimated GFR () 5.0 Estimated GFR (Non- 4.3 BUN/Creatinine Ratio 7.6 (10-20) Calcium Level 8.6 mg/dl (8.5-10.1) Bedside Glucose 130 mg/dl (70-90) Assessment and Plan 62 yo F with h/o End stage Renal disease on Dialysis, CHF, DM, HTN, HLD, CAD, recent cardiac arrest presenting with with progressive dyspnea and acute Hypoxic respiratory failure secondary to pulmonary edema Acute Hypoxic Respiratory Failure - 2/2 pulmonary edema - resolved with dialysis - Continue Furosemide PO 40 mg BID - appreciate nephrology management with dialysis Hyperkalemia - K 5.1, monitor Hypoglycemia (T2DM) - resolved - Sliding scale insulin - received 19 units yesterday today therefore will have to cut back on her usual 180 units total of mix on discharge despite her better diet here - plan on 40 units total. CHF - ECHO from 05/30: Ejection Fraction = 40-45% Diastolic dysfunction, Grade III (restrictive pattern), consistent with markedly increased left atrial pressure. - Continue Lasix/dialysis - Continue BB, Unclear why she is not on an ACEi discussed with Dr Gaxiola who will review her past history and make the decision regarding this. ESRD - Appreciate nephrology management with ongoing dialysis CAD , h/o recent cardiac arrest - Continue ASA, Plavix, metoprolol, rosuvastatin - Cardiology following, Echo report showing: LVEF improved from outside hospital , now LVEF 40-45% Anemia - likely secondary to CKD - erythropoietin per Nephrology - F/u with Nephrology - follow daily CBC VTE Prophylaxis - Heparin 5,000 units q8h Code Status - Full Resuscitation as discussed with the patient Disposition - aim for discharge home later today Resident Tracking Resident Involvement: Resident Care Provided Care Provided: Adult Hospital Medicine History Resident Physician Supervision Note: I was present with Dr. Lewis during the history and exam. I discussed the case with the resident and agree with the findings and plan as documented in the note. Any exceptions or clarifications are listed here. Pt resting comfortably in bed without complaint at present. States that swelling of the b/l LE at lower than baseline. Shortness of breath at baseline. Reports no fever, chills, CP, palpitations. General Appearance: no apparent distress, obese Respiratory: chest non-tender, no respiratory distress, decreased breath sounds Cardiovascular: normal peripheral pulses, regular rate, rhythm, no murmur Gastrointestinal: normal bowel sounds, non tender, soft, no organomegaly Assessment/Plan 62 y/o female h/o ESRD on HD, CHF, DMII, HTN, HLD, CAD w/ recent arrest reported p/w acute onset SOB Nausea/vomiting - resolved AHRF 2/2 volume overload in the setting of ESRD on HD and CHF/CAD w/ recent arrest - nephrology consulted, recommendations appreciated, dialysis T// - continue lasix, encourage low sodium diet CHF w/ CAD, HLD - grade III diastolic dysfunction (may 2017) - continue lasix, metoprolol, ASA, Plavix, Crestor DMII w/ hypoglycemia following insulin administration at [facility] - monitor FSBS , ISS - for discharge, would implement very mild glycemic control regimen and f/ u ACD - stable DVT PPX - heparin FULL CODE
--- NOTE | 2017-07-31 10:17 | Nephrology Progress Note ---
Nephrology Progress Note Date of Service Jul 31, 2017. Chief Complaint ESRD Subjective No acute events overnight. No complaints this AM. Brooke feels well. Nausea has improved. She denies chest pain or palpitations. She denies significant dyspnea. Brooke was seen and evaluated during hemodialysis. Review of Systems A complete review of systems was performed. Pertinent positives are noted above. All other systems are negative. Vital Signs Last 8 Hrs Date Time Temp Pulse Resp B/P (MAP) Pulse Ox O2 Delivery O2 Flow Rate FiO2 07/31/17 08:20 Room Air 07/31/17 07:04 36.6 84 16 122/73 (89) 93 Room Air 07/31/17 05:20 36.4 80 18 104/68 (80) 94 07/31/17 04:00 Room Air Last Recorded Weight Weight (Kilograms): 84.500 Physical Exam General Appearance: WD/WN, no apparent distress Head: normocephalic, atraumatic Eyes: normal inspection, sclerae normal ENT: normal ENT inspection, pharynx normal Neck: supple, no JVD Respiratory/Chest: lungs clear, no respiratory distress, no accessory muscle use Cardiovascular: regular rate, rhythm, no murmur Abdomen/GI: non tender, soft Extremities/Musculoskelatal: normal inspection, no pedal edema Neurologic/Psych: alert, normal mood/affect Social History Drug Use: none Marital Status: single Housing Status: lives with family Occupation: retired Laboratory Results Past 24 Hours 07/31/17 07:06 07/31/17 07:06 Test 07/30/17 11:15 07/30/17 16:47 07/30/17 20:35 07/31/17 07:06 Bedside Glucose 169 mg/dl (70-90) 158 mg/dl (70-90) 143 mg/dl (70-90) Anion Gap 10.0 mmol/L (3-11) Est Creatinine Clear Calc Drug Dose 6.8 ml/min Estimated GFR () 5.0 Estimated GFR (Non- 4.3 BUN/Creatinine Ratio 7.6 (10-20) Calcium Level 8.6 mg/dl (8.5-10.1) Test 07/31/17 07:28 Bedside Glucose 130 mg/dl (70-90) Allergies Coded Allergies: Atorvastatin (Verified Allergy, Mild, UNKNOWN, 05/29/17) Calcium Channel Blockers (Verified Allergy, Mild, UNKNOWN, 05/29/17) Carbapenems (Verified Allergy, Mild, UNKNOWN, 05/29/17) Cephalosporins (Verified Allergy, Mild, UNKNOWN, 05/29/17) Penicillins (Verified Allergy, Mild, UNKNOWN, 05/29/17) Medications Current Inpatient Medications Medications (Trade) Dose Ordered Sig/Kaley Route Start Time Stop Time Status Last Admin Dose Admin Acetaminophen (Tylenol Tab) 650 mg Q4H PRN PO 07/26/17 23:45 08/25/17 23:44 07/30/17 14:01 650 MG Magnesium Hydroxide (Milk Of Magnesia Susp) 30 ml Q12H PRN PO 07/26/17 23:45 08/25/17 23:44 Ondansetron HCl (Zofran Inj) 4 mg Q6H PRN IV 07/26/17 23:45 08/25/17 23:44 07/30/17 12:07 4 MG Nitroglycerin (Nitrostat Tab) 0.4 mg UD PRN SL 07/26/17 23:45 08/25/17 23:44 Glucose (Glucose 40% Gel) 15-30 GRAMS 15 GRAMS... UD PRN PO 07/26/17 23:45 08/25/17 23:44 Glucose (Glucose Chew Tab) 4-8 Tablets 4 Tabl... UD PRN PO 07/26/17 23:45 08/25/17 23:44 Dextrose (Dextrose 50% 50ML Syringe) 25-50ML OF 50% DW IV FOR... UD PRN IV 07/26/17 23:45 08/25/17 23:44 Glucagon (Glucagon Inj) 1 mg UD PRN SQ 07/26/17 23:45 08/25/17 23:44 Aspirin (Ecotrin Tab) 325 mg DAILY PO 07/27/17 09:00 08/26/17 08:59 07/31/17 08:08 325 MG Clopidogrel Bisulfate (plAVix TAB) 75 mg DAILY PO 07/27/17 09:00 08/26/17 08:59 07/31/17 08:08 75 MG Docusate Sodium (coLACE CAP) 100 mg DAILY PO 07/27/17 09:00 08/26/17 08:59 07/31/17 08:08 100 MG Furosemide (Lasix Tab) 40 mg BID PO 07/27/17 09:00 08/26/17 08:59 07/31/17 08:08 40 MG Metoprolol Succinate (Toprol Xl Tab) 25 mg DAILY PO 07/27/17 09:00 08/26/17 08:59 07/31/17 08:08 25 MG Rosuvastatin Calcium (Crestor Tab) 10 mg DAILY PO 07/27/17 09:00 08/26/17 08:59 07/31/17 08:08 10 MG Sodium Bicarbonate (Sodium Bicarbonate Tab) 650 mg BID PO 07/27/17 09:00 08/26/17 08:59 Future Hold 07/27/17 07:48 650 MG Ferrous Sulfate (Feosol Tab) 325 mg BID PO 07/27/17 09:00 08/26/17 08:59 07/31/17 08:08 325 MG Sevelamer HCl (Renagel Tab) 800 mg HS PO 07/27/17 21:00 08/26/17 20:59 07/30/17 21:35 800 MG Sevelamer HCl (Renagel Tab) 2,400 mg AC PO 07/27/17 07:00 08/26/17 06:59 07/31/17 07:42 2,400 MG Pantoprazole Sodium (Protonix Tab) 40 mg QAM PO 07/27/17 09:00 08/26/17 08:59 07/31/17 08:08 40 MG Insulin Aspart (novoLOG ASPART) SLIDING SCALE G... ACHS SC 07/27/17 07:00 08/26/17 06:59 07/31/17 08:12 3 UNITS Heparin Sodium (Porcine) (Heparin Sq 5000 Unit/0.5ml) 5,000 unit Q8 SQ 07/27/17 06:00 08/26/17 05:59 07/31/17 05:44 5,000 UNIT Metoclopramide HCl (Reglan Inj) 10 mg DAILY PRN IM 07/30/17 00:15 08/29/17 00:14 07/30/17 14:39 10 MG Impression (1) ESRD on dialysis (2) Acute respiratory failure with hypoxia (3) CHF (congestive heart failure) (4) Anemia (5) COPD (chronic obstructive pulmonary disease) (6) SOB (shortness of breath) Brooke Fitch is a 62-year-old female with ESRD on HD. She was admitted with shortness of breath. Evaluation notable for acute on chronic systolic CHF. She was seen and evaluated today during hemodialysis. Recommendations -- HD today. UF goal 3-4 L as tolerated -- Low K bath for hyperkalemia -- Medications appropriate for IHD -- Epogen 4000 IU with HD -- Sevelamer QAC -- Renal diet with sodium and potassium restriction -- Patient to resume HD at [facility] under the care of Dr. Coto at discharge; HD unit will need to be contacted regarding discharge
[2017-07-31] MEDS ORDERED: EPOETIN ALFA 4000 UNITS/ML VIAL IV SCH (10:30)
[2017-07-31] MEDS ORDERED: NVLGI7030 SC ×2 (17:53)
--- NOTE | 2017-07-31 17:58 | Discharge Instructions ---
Discharge Instructions Date of Service Jul 31, 2017. Admission Reason for Admission: Respiratory Distress, Dialysis Patient Discharge Discharge Diagnosis / Problem: Pulmonary edema secondary to end stage renal disease Discharge Goals Goal(s): Improve disease control Activity Recommendations Activity Limitations: resume your previous activity . Instructions / Follow-Up Instructions / Follow-Up You were diagnosed with pulmonary edema secondary to end stage renal disease which you were treated with dialysis. Please, follow up at [facility] Cardiology Office with Dr. Gaxiola on WednesdayAugust 18 at 2:15 pm (arrive 2:00 pm) *This office is located in [address] of [facility] building next to this hospital. The address is [address] [place] [address] in [place]. If you need to reschedule this appointment, you can call the office at [phone]. Resume hemodialysis at [facility] [place] on Wednesday, and Wednesday schedule. Case Management will call on Wednesday to arrange a specific time for this and call you with an update. Please call [phone] if you do not hear from us on Wednesday. We have adjusted your insulin quite dramatically from 180 units daily to 20 units daily (please see prescription). This is because you have not required much insulin as an inpatient due to your diabetic diet therefore on your regular diet you may find you blood glucose levels run high. You should measure these at least 4 times a day before meals and at bed time. If have low blood glucose levels (less than 100) or high (>200) please call your primary care physician to advise you on dosing your insulin. Current Hospital Diet Patient's current hospital diet: Diabetes Type 2 Diet, Renal Diet Discharge Diet Recommended Diet: Low Sodium Diet (2gm Na), Diabetes Type 2 Diet, Renal Diet Pending Studies Studies pending at discharge: no Laboratory Results Hemoglobin A1c Test 07/27/17 05:22 Range/Units Estimated Average Glucose 134 mg/dl Hemoglobin A1c 6.3 H 4.5-5.6 % Medical Emergencies . Who to Call and When: Medical Emergencies: If at any time you feel your situation is an emergency, please call 911 immediately. . Non-Emergent Contact Non-Emergency issues call your: Primary Care Provider . . "Provider Documentation" section prepared by Lucio Lewis. . VTE Core Measure Inpt VTE Proph given/why not?: Unfractionated heparin SQ, T.EJuan Carlos. Adalgisa, SCD 's
--- NOTE | 2017-07-31 18:18 | Discharge Summary ---
Discharge Summary Date of Service Jul 31, 2017. Discharge Summary Admission Date: Jul 26, 2017 at 23:00 Discharge Date: Jul 31, 2017 Discharge Disposition: Home with services Principal Diagnosis: Pulmonary edema Problems/Secondary Diagnoses: End stage renal disease on dialysis Elevated troponin Nausea and vomiting Immunizations: Have You Had Influenza Vaccine: No History of Tetanus Vaccine?: Yes History of Pneumococcal: Yes History of Hepatitis B Vaccine: Yes Consultations: Dr Marx (Nephrology) Dr Gaxiola (Cardiology) Medication Reconciliation Changed Medications: Insulin Aspart 70/30 (Novolog Mix 70/30) Susp 10 UNITS SC HS for 30 Days, BTL (Changed from: 86 ) Do not give if blood glucose is less than 100 Use extra 10 units if blood glucose is greater than 250 Insulin Aspart 70/30 (Novolog Mix 70/30) Susp 10 UNITS SC QAM for 30 Days, #1 BTL (Changed from: 94 ) Do not give if blood glucose is less than 100 Use extra 10 units if blood glucose is greater than 250 Continued Medications: Aspirin (Aspirin) 325 Mg Tab 325 MG PO DAILY Clopidogrel (Plavix) 75 Mg Tab 75 MG PO DAILY, TAB Darbepoetin Basilio-Polysorbate 8 (Aranesp Albumin Free) 150 Mcg/0.3 Ml Inj WK Docusate Sodium (Colace) 100 Mg Cap 1 CAP PO DAILY for 15 Days, #15 CAP Ferrous Sulfate (Kp Ferrous Sulfate) 325 Mg Tab 1 TAB PO BID for 30 Days, #60 TAB 3 Refills Folic Acid-Vitamin B6-Vitamin (Folic Acid/Vitamin B-6/Vi) 1 Tab Tab PO DAILY Furosemide (Lasix) 40 Mg Tab 40 MG PO BID, TAB Metoprolol Succinate (Toprol Xl) 25 Mg Tabcr 1 TAB PO DAILY for 30 Days, #30 TAB 5 Refills Omeprazole (Omeprazole) 20 Mg Tab 1 TAB PO DAILY for 90 Days, #90 TAB 1 Refill Rosuvastatin Calcium (Crestor) 10 Mg Tab 1 TAB PO DAILY for 30 Days, #30 TAB 5 Refills Sevelamer Carbonate (Renvela) 800 Mg Tab 1 TAB PO DAILY for 90 Days, #90 TAB 3 Refills Sevelamer Carbonate (Renvela) 800 Mg Tab 3 TAB PO TID AC for 90 Days, TAB 3 Refills Sodium Bicarbonate (Sodium Bicarbonate) 650 Mg Tab 650 MG PO BID Discharge Exam Please see progress note from today Hospital Course 62 yo female with h/o End stage Renal disease on Dialysis, CHF, DM, HTN, HLD, CAD, recent cardiac arrest presented with progressive shortness of breath and acute Hypoxic respiratory failure secondary to pulmonary edema Acute Hypoxic Respiratory Failure - 2/2 pulmonary edema - resolved with dialysis - Continue Furosemide PO 40 mg BID Hypoglycemia (T2DM) - Sliding scale insulin - received 19 units yesterday. Total 180 units! of NovoLog 70/30 being given at home. - Given having hypoglycemic episodes I will discharge on 10 units of 70/30 BID ( with advice to increase to 20 units BID if glucose > 250). However patient was educated on diet I suspect she will need more but in the short term I am more concerned about her having hypoglycemic episodes especially with an HbA1C of 6.4. CHF - ECHO from 05/30: Ejection Fraction = 40-45% Diastolic dysfunction, Grade III (restrictive pattern), consistent with markedly increased left atrial pressure. - Continue Lasix/dialysis - Continue BB, Unclear why she is not on an ACEi discussed with Dr Gaxiola who will review her past history and make the decision regarding this. ESRD - Appreciate nephrology management with ongoing dialysis CAD , h/o recent cardiac arrest - Continue ASA, Plavix, metoprolol, rosuvastatin - Cardiology following, Echo report showing: LVEF improved from outside hospital , now LVEF 40-45% Anemia - erythropoietin as per Nephrology - F/u with Nephrology Total Time Spent: Less than 30 minutes This includes examination of the patient, discharge planning, medication reconciliation, and communication with other providers. Discharge Instructions Please refer to the electronic Patient Visit Report (Discharge Instructions) for additional information. Follow-Up Please follow up with Dr. Tena on Friday, August 04, 2017 at 10:30am. *If you need to reschedule this appointment please call the office at [phone]. Resume hemodialysis at [facility] in [place] on Wednesday, and Wednesday schedule. Please call Sariah at [facility], for times. Please, follow up at [facility] Cardiology Office with Dr. Gaxiola on WednesdayAugust 18 at 2:15 pm (arrive 2:00 pm). *This office is located in [address] of [facility] - big building next to this hospital. The address is [address] [place] [address] in [place]. If you need to reschedule this appointment, you can call the office at [phone]. Additional Copies To Jimi Gaxiola MD; Octavia Schaffer PA-C; Hernán Marx D.O. History Resident Physician Supervision Note: I was present with Dr. Lewis during the history and exam. I discussed the case with the resident and agree with the findings and plan as documented in the note. Any exceptions or clarifications are listed here. For full attending history and examination, please see note from day of discharge. Assessment/Plan 62 y/o female h/o ESRD on HD, CHF, DMII, HTN, HLD, CAD w/ recent arrest reported p/w acute onset SOB AHRF 2/2 volume overload in the setting of ESRD on HD and CHF/CAD w/ recent arrest - dialysis T// - continue lasix, encourage low sodium diet CHF w/ CAD, HLD - grade III diastolic dysfunction (may 2017) - continue lasix, metoprolol, ASA, Plavix, Crestor DMII w/ hypoglycemia following insulin administration at [facility] - monitor FSBS , ISS - for discharge, would implement very mild glycemic control regimen as noted above ACD - stable
== END 2017-07-31 19:50 | disposition home health service (06) | DRG 291 ==
LOC: C.2T 23:00 → C.MED 07-28 23:14
PROVIDERS: ADMIT Internal Medicine; ATTEND Family Medicine
DX: I13.2 Hypertensive heart and chronic kidney disease with heart failure and with stage 5 chronic kidney disease, or end stage renal disease (principal); J96.01 Acute respiratory failure with hypoxia; N18.6 End stage renal disease; I50.23 Acute on chronic systolic (congestive) heart failure; E11.649 Type 2 diabetes mellitus with hypoglycemia without coma; J44.9 Chronic obstructive pulmonary disease, unspecified; I25.10 Atherosclerotic heart disease of native coronary artery without angina pectoris; E87.5 Hyperkalemia; D63.1 Anemia in chronic kidney disease; Z87.891 Personal history of nicotine dependence; Z99.2 Dependence on renal dialysis; Z79.4 Long term (current) use of insulin; Z79.82 Long term (current) use of aspirin